=== PATIENT | male | born 1955 | race Caucasian/White ===

== ENCOUNTER 2017-05-09 08:25 | Inpatient (IN) | payer OTHER ==
[2017-05-09] VITALS (19 sets, daily range): BP systolic 81–138; BP diastolic 53–97; PULSE 90–122; RESP 12–26; O2SAT 96–100
[~2017-05-09] VITALS: Ht 175.3 cm; Wt 78.8 kg
[2017-05-09 09:11] LABS: BASOPHILS % (AUTO) 0.2 % (0-3); EOSINOPHILS % (AUTO) 0.2 % (0-5); MONOCYTES % (AUTO) 3.8 % (4-12); Mean Corpuscular Hemoglobin 31.4 pg (27.0-35.0); Mean Corpuscular Volume 90.7 fL (81-100); NEUTROPHILS % (AUTO) 83.8 % (40-74); Platelet Count 297 bil/L (150-400)
--- NOTE | 2017-05-09 09:11 | ED.REPORT ---
HPI-General Illness Date of Service May 09, 2017 ED Provider: Andreas Ferrari MD The pt is a 62 y/o male presenting to the ED via EMS due to multiple syncopal episodes. He reports losing consciousness twice last night after standing up and becoming lightheaded, diaphoretic, and began hyperventilating. He also reports losing consciousness while sitting on the toilet. The pt also reports bloody diarrhea beginning two days ago. He says he has had two colonoscopies that were normal but found bleeding from internal hemorrhoids. Other symptoms include nausea and abdominal pain right below the nasal, and a fever.Denies vomiting, CP, weakness, numbness, blurry vision, slurred speech, dysphagia. The pts reports having a cold currently. Nursing Notes Stated Complaint: SYNCOPAL Chief Complaint: Syncopal episodes Nursing Notes Reviewed: Yes Allergies: Coded Allergies: No Known Allergies (Unverified , 05/09/17) Scheduled Lisinopril (Lisinopril) 10 Mg Tablet 10 MG PO DAILY Scheduled PRN Aspirin (Aspirin) 325 Mg Tablet 325 MG PO PRN For Pain oxyCODONE-Acetaminophen 10-325 mg (oxyCODONE-Acetaminophen 10-325 mg) 1 Each Tablet 1 TABLET PO Q6H PRN PRN For Pain Miscellaneous Medications ([Testosterone]) ([Cholesterol Med]) General Time Seen by MD: 08:51 Chief Complaint Other (Syncopal episodes) Hx Obtained From: Patient, Spouse Arrived By: Ambulance Sudden in Onset?: Yes Onset Occurred: Yesterday Symptom Duration: Intermittent Recent Healthcare: No recent doctor visit, No recent hospitalization Similar Sx Previous: No Past Medical History Past Medical History "Bad back" Past Surgical History None reported Smoking History Unknown if Ever Smoker Social History Other Social History: Good social support, Ambulatory Status Independent Review of Systems Pt reports feeling lightheaded, diaphoretic, and hyperventilating when he stands up; Denies dysphagia; Full Review of Systems Constitutional: Reports: Fever Eyes: Denies: Blurred bilateral Cardiovascular: Denies: Chest pain GI: Reports: Abdominal pain, Bloody/tarry stool, Diarrhea, Nausea, Denies: Vomiting Neurologic: Denies: Numbness, Slurred speech, Weakness Complete sys rev & neg: except as marked. Physical Exam Vital Signs Vital Signs Date Time Temp Pulse Resp B/P Pulse Ox O2 Delivery O2 Flow Rate FiO2 8/22/17 09:07 100 22 114/54 99 Room Air 05/09/17 08:41 37 122 15 81/67 100 Room Air Initial VS: Reviewed General/Constitutional: Well-developed, Well-nourished Head / Eyes: Atraumatic, Normocephalic, PERRL ENT: Mucous membranes moist, Conjunctiva normal, No scleral icterus Neck: Supple, Non-tender, Full range of motion Respiratory: Breath sounds normal, Clear to auscultation, No respiratory distress Extremities: Vascular intact, Neuro intact, No swelling, No tenderness Skin: Warm, Dry, No cyanosis Neurologic: Alert, Oriented, Nonfocal Psychiatric: Mood/affect normal, Behavior normal, Normal thought content Cardiovascular: Regular rhythm, Heart sounds NL Heart Rate / Rhythm: Positive: Tachycardia Abdomen: Soft Tenderness/Guarding/Rebound: Positive: Tender diffuse (mild ) Rectum / Perineum: No fecal impaction Guaiac positive Interpretation & Diagnostics Lab Results Interpretation Result Diagram: 05/09/17 0855 05/09/17 0855 Test 05/09/17 08:55 White Blood Count 13.0th/mm3 (3.8-10.1) Red Blood Count 2.26mil/mm3 (4.40-5.80) Hemoglobin 7.1g/dL (13.8-17.2) Hematocrit 20.5% (41.0-50.0) Mean Corpuscular Volume 90.7fL (81-100) Mean Corpuscular Hemoglobin 31.4pg (27.0-35.0) Mean Corpuscular Hemoglobin Concent 34.6% (32.0-37.0) Red Cell Distribution Width 12.2% (12.3-15.4) Platelet Count 297bil/L (150-400) Neutrophils (%) (Auto) 83.8% (40-74) Lymphocytes (%) (Auto) 11.5% (14-46) Monocytes (%) (Auto) 3.8% (4-12) Eosinophils (%) (Auto) 0.2% (0-5) Basophils (%) (Auto) 0.2% (0-3) Sodium Level 136mEq/L (134-144) Potassium Level 4.9mEq/L (3.5-5.2) Chloride Level 104mEq/L (97-108) Carbon Dioxide Level 20mmol/L (18-29) Blood Urea Nitrogen 49mg/dL (8-27) Creatinine 1.15mg/dL (0.76-1.27) Estimat Glomerular Filtration Rate 68mL/min (>59) Glucose Level 131mg/dL (60-99) Lactic Acid Level 1.2mmol/L (0.4-2.0) Calcium Level 7.4mg/dL (8.5-10.1) Magnesium Level 1.7mg/dL (1.6-2.6) Total Bilirubin 0.2mg/dL (0.0-1.2) Aspartate Amino Transf (AST/SGOT) 10U/L (0-50) Alanine Aminotransferase (ALT/SGPT) 14U/L (0-44) Alkaline Phosphatase 50U/L (25-160) Total Protein 5.0g/dL (6.4-8.4) Albumin 3.4g/dL (3.4-5.0) Lipase 12U/L (13-60) ECG Interpretation ECG Interpretation: NSR No ST changes rate 97 Time: 08:56 Interpreted by: ED physician X-Ray Chest Interpretation Chest Xray Interpretation: IMPRESSION: Negative chest. No acute cardiopulmonary process is evident. Dictated by: Peyman Baltazar M.D. on 05/09/2017 at 9:27 Approved by: Peyman Baltazar M.D. on 05/09/2017 at 9:28 View: Portable, 1 view Interpretation / Wet Read by: Interpret - Radiologist CT Abd / Pelvis Interpretation IMPRESSION: 1. No definite acute abnormality is appreciated within the abdomen or pelvis. 2. Nonspecific prominence of the wall of the proximal duodenum may be related to incomplete distention. However, clinical correlation to exclude duodenitis is recommended. 3. Large amount of residual stool within the rectal vault may be related to early fecal impaction or constipation. No bowel obstruction. 4. Possible small hiatal hernia. 5. Small fat containing left in the hernia. 6. Moderate degenerative changes of the spine. Dictated by: Peyman Baltazar M.D. on 05/09/2017 at 10:14 Approved by: Peyman Baltazar M.D. on 05/09/2017 at 10:19 Study type: Abdom CT oral contrast Interpretation / Wet Read by: Interpret - Radiologist Re-Eval/Medical Decision Med Decision/Clinical Course 62-year-old male history of internal hemorrhoids and GI bleed from internal hemorrhoids acting years ago presenting with bloody diarrhea for the past 3 days. He has gross blood in his stools on exam today. His hemoglobin is 7. We have no baseline. He was hypotensive with maps in the 50s. He was given IV fluids and 2 units PRBCs. Stool cultures were ordered. CT abdomen and pelvis no acute pathology. Discussed with GI who will see the patient. Protonix started. Admitted to hospital. Source of Hx: Old records Time of Eval: 11:33 Re-Evaluation/Progress Note: Pt rechecked. Informed pt of need for admission. Pt understands and agrees with plan for admission. All questions addressed. Consultation #1: Referral / Consult Name: Emma Ayon MD Consulted With: Cardiology Call Returned at: 09:51 Consultation #2: Referral / Consult Name: Ramsey Oscar MD Consulted With: Hospitalist Call Returned at: 11:33 Broacher: Will see patient, Agrees with eval, Agrees with plan, Accepts admit Counseled Regarding: Diagnosis, Lab results, Need for admission Discharge & Departure Primary Impression: GI bleed GI bleed type/associated pathology: unspecified gastrointestinal hemorrhage type Qualified Code: K92.2 - Gastrointestinal hemorrhage, unspecified Additional Impression: Syncope Syncope type: unspecified Qualified Code: R55 - Syncope and collapse Disposition: ADMITTED TO HOSPITAL Discharge Condition All VS Reviewed: Yes Condition: Stable Referrals: Anuj Keating PA-C (PCP) Crit Care Except Billable Proc Time Spent: 30-74 minutes Services Performed: Patient management by me, Time spent at bedside, Reviewing test results, Reviewing imaging, Discussing patient care, Documentation in record, Time with fam/surrogate (35) Scribe Attestation Portions of this note were transcribed by Abram Bell. I, Dr. Ferrari personally performed the history, physical exam and medical decision-making; I reviewed and confirmed the accuracy of the information in the transcribed note. copies to: Anuj Keating PA-C, Ben M MD May 09, 2017 09:11 Abram Bell May 09, 2017 09:52
[2017-05-09] MEDS ORDERED: LISI10TA PO (09:15)
[2017-05-09] MEDS ORDERED: TESTOSTERONE (09:15)
[2017-05-09] MEDS ORDERED: CHOLESTEROL MED (09:15)
[2017-05-09] MEDS ORDERED: ASPI325T32 PO (09:15)
[2017-05-09] MEDS ORDERED: OXYC-466 PO (09:15)
[2017-05-09] MEDS ORDERED: 0.9% Sodium Chloride 1,000 ML IV ONE (09:30)
[2017-05-09 09:32] LABS: Magnesium 1.7 mg/dL (1.6-2.6)
[2017-05-09] MEDS ORDERED: Pantoprazole Inj 80 MG, Pharmacy To Mix 1 EA in 0.9% Sodium Chloride 80 ML IV ONE ×2 (10:25)
[2017-05-09] MEDS ORDERED: Pantoprazole 4 mg/mL 10 mL Inj IVPUSH ONE (10:25)
--- NOTE | 2017-05-09 10:30 | DRSVH ---
PROCEDURE: X-RAY CHEST ONE VIEW, PORTABLE ([id number]) INDICATIONS: COUGH TECHNIQUE: One view of the chest was acquired. COMPARISON: [facility], CR, XR CHEST 2VW, 06/03/2016, 9:58. FINDINGS: Surgical changes and devices: None. Lungs and pleura: No pleural effusions or pneumothorax. Lungs are clear. Mediastinum: Mediastinal contours appear normal. Heart size is normal. Bones and chest wall: No suspicious bony lesions. Overlying soft tissues appear unremarkable. A ca lcification within the left neck may represent a carotid atherosclerotic calcification. IMPRESSION: Negative chest. No acute cardiopulmonary process is evident. Dictated by: Peyman Baltazar M.D. on 05/09/2017 at 9:27 Approved by: Peyman Baltazar M.D. on 05/09/2017 at 9:28
[2017-05-09] MEDS: Ondansetron 2 mg/mL 2 mL Inj IVPUSH PRN ×2 (10:58→11:39)
--- NOTE | 2017-05-09 11:21 | DRSVH ---
PROCEDURE: CT ABDOMEN AND PELVIS WITH CONTRAST ([id number]) INDICATIONS: abd pain gi bleed TECHNIQUE: After the administration of oral and intravenous contrast, 5 mm thick sections acquired from the diap hragms to the symphysis. 5 mm thick coronal and sagittal reformats were performed. For radiation do se reduction, the following was used: automated exposure control, adjustment of mA and/or kV accordi ng to patient size. COMPARISON: None. FINDINGS: Image quality: Diagnostic. ABDOMEN: Lung bases: Lung bases are clear. Heart size is normal. Solid organs: Liver and spleen are normal in size and enhancement. Gallbladder is not enlarged or o bviously inflamed. Biliary system is non-dilated. Pancreas enhances normally. No adrenal nodules. Kidneys are normal in size and enhancement, without hydronephrosis. Peritoneum and bowel: There may be a small hiatal hernia. Otherwise, the stomach, duodenum, and edi natanael of the small bowel loops are nondilated. There is borderline prominence of the wall of the duo denum within the 1st to 2nd portion of the duodenum. No surrounding inflammation is evident. The ap pendix is well-visualized and normal in size without surrounding inflammation. There is a large amou nt of residual stool seen within the rectum. There may be areas of colonic diverticulosis. No mesen teric inflammation is present. No free fluid, loculated fluid collection or free air is evident. Nodes and vessels: No retroperitoneal or mesenteric adenopathy. Aorta and inferior vena cava are no rmal in caliber. There is aortic atherosclerosis. Bones: Moderate multilevel degenerative changes of the spine are present. No suspicious osseous lesi ons are evident. Bilateral L5 pars defects are present without significant lumbosacral spondylolisth esis. There is grade 1 anterolisthesis of L4 and L5. However, no definite pars defects at this leve l are present. PELVIS: Genitourinary: Bladder wall thickness is normal. The prostate is significantly enlarged. Miscellaneous: There is a small fat containing left inguinal hernia. No free fluid or loculated flui d collection is seen within the pelvis. Bones: No suspicious bony lesions. No acute pelvic fractures are identified. IMPRESSION: 1. No definite acute abnormality is appreciated within the abdomen or pelvis. 2. Nonspecific prominence of the wall of the proximal duodenum may be related to incomplete distenti on. However, clinical correlation to exclude duodenitis is recommended. 3. Large amount of residual stool within the rectal vault may be related to early fecal impaction or constipation. No bowel obstruction. 4. Possible small hiatal hernia. 5. Small fat containing left in the hernia. 6. Moderate degenerative changes of the spine. Dictated by: Peyman Baltazar M.D. on 05/09/2017 at 10:14 Approved by: Peyman Baltazar M.D. on 05/09/2017 at 10:19
[2017-05-09] MEDS ORDERED: Pantoprazole Inj 80 MG in 0.9% Sodium Chloride 80 ML IV SCH (11:50)
[2017-05-09] MEDS ORDERED: Alum-Mag Hydrox-Simeth 30 mL Suspension PO PRN (12:35)
[2017-05-09] MEDS ORDERED: Ondansetron 2 mg/mL 2 mL Inj IVPUSH PRN ×2 (12:35→19:20)
[2017-05-09 13:29] LABS: APPEARANCE,URINE HAZY (CLEAR,HAZY); COLOR,URINE STRAW (YELLOW)
[2017-05-09 13:30] LABS: OCCULT BLOOD,URINE NEGATIVE (NEGATIVE); UROBILINOGEN,URINE NORMAL (NORMAL)
[2017-05-09] MEDS ORDERED: Propofol 10,000 mCg/mL 20 mL Inj ONE (13:38)
[2017-05-09] MEDS: HYDROmorphone 1 mg/mL Inj IVPUSH PRN ×2 (15:31→21:13)
--- NOTE | 2017-05-09 15:37 | PCM.HPMED ---
Subjective Date of Service May 09, 2017 Primary Provider: Admitting Physician: Ramsey Oscar MD Primary Care Physician: Anuj Keating PA-C Attending Physician: Ramsey Oscar MD Admit Status: From the Emergency Department, Admit to [facility] Team Chief Complaint: GI Bleed History of Present Illness: Mr. Chavez is a 62-year-old male with past medical history of hypertension, hyperlipidemia, low testosterone chronic lower back pain secondary to ruptured disc secondary to fall from roof who presents to ED secondary to bloody diarrhea 2 days. Patient states that he developed a cold 4 days ago with associated symptoms of productive cough of yellow sputum, stomach ache bloody diarrhea lightheadedness which persisted over the weekend into Monday. On Monday night he was using the toilet when he got up he became lightheaded and "passed out" following on the bathroom floor. When he woke up he was able to crawl to his bed though he that time he needed to be evaluated. He states that he has been having approximately 8-10 bloody diarrheal bowel movements per day, this is been accompanied with some nausea night sweats and chills, suprapubic pain and shortness of breath which he attributes to anxiety. He has felt lightheaded especially when going from sitting to standing. He denies chest pain, headache, visual disturbances or fevers. He currently lives at home with his and daughter, reports his daughter age 25 to have similar symptoms of nausea and diarrhea though nonbloody. He does not drink alcohol regularly, nonsmoker and has never had similar symptoms. Denies any recent travel or family history of gastrointestinal diagnoses. He states he has had a GI bleed in the past though was told this was due to internal hemorrhoids and presented with bright red blood. He does state that he takes a daily aspirin, sometimes more to help supplement his pain medication Percocet for his chronic back pain. In the emergency department EKG showed normal sinus rhythm with no ST changes though tachycardic. Chest x-ray was negative. CT of the abdomen and pelvis showed no acute abnormality possible duodenitis large amount of residual stool within the rectal vault though no bowel obstruction. GI consult from the ED to see patient, currently scheduled for upper endoscopy today. Hemoglobin and hematocrit 7.1/20.5, given 1 unit of PRBCs. Started on PPI, given normal saline and pain medicine. Review of Systems: A comprehensive review of systems was conducted with the patient and found to be negative except as above in the history of present illness. Allergies Coded Allergies: No Known Allergies (Unverified , 05/09/17) Home Medications Aspirin (Aspirin) 325 Mg Tablet 325 MG PO PRN For Pain oxyCODONE-Acetaminophen 10-325 mg (oxyCODONE-Acetaminophen 10-325 mg) 1 Each Tablet 1 TABLET PO Q6H PRN PRN For Pain Patient reports: Lisinopril, cholesterol medication and testosterone [facility] Patient reports hypertension, hyperlipidemia, low testosterone, chronic back pain secondary to ruptured disc secondary to fall from roof Surgical History Patient reports: bilateral inguinal hernia repair 30 years prior. 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 Never served in the . Currently lives with daughter and has 4 full grown children age range 37-25 2 boys 2 girls Exam Vital Signs Vital Sign - Last Date Time Temp Pulse Resp B/P Pulse Ox O2 Delivery O2 Flow Rate FiO2 05/09/17 15:25 37.2 99 14 116/72 05/09/17 14:38 100 Room Air Exam General: Awake alert laying in hospital bed in mild discomfort, well-developed, well-nourished, appropriately interactive HEENT: Normocephalic, atraumatic. External ears without defect. Pupils equal, round, and reactive to light and accommodation. Anicteric sclerae, no conjunctival. Oropharynx free of erythema and cobble stoning with moist mucosa, upper bridge in place. Neck: Supple with full range of motion. No jugular venous distension. No bruits. Cardiovascular: Regular rate and rhythm with no murmurs, rubs, or gallops appreciated Pulmonary: Clear to auscultation bilaterally with no crackles, wheezes, or rhonchi. Normal respiratory effort with no use of accessory muscles. Abdomen: Bowel tones present. Soft, palpation 4 quadrants. Suprapubic tenderness on palpation. Extremities: No clubbing, cyanosis, edema Skin: Normal temperature, turgor, and texture Neurological: Cranial nerves grossly intact. Psychiatric: Normal mood and affect. Alert and oriented to person, place, and time. Lab and Diagnostics Result Diagram: 05/09/1755 05/09/17 0855 X-Rays, CTs and MRIs . X-RAY CHEST ONE VIEW, PORTABLE IMPRESSION: Negative chest. No acute cardiopulmonary process is evident. Dictated by: Peyman Baltazar M.D. on 05/09/2017 CT ABDOMEN AND PELVIS WITH CONTRAST IMPRESSION: 1. No definite acute abnormality is appreciated within the abdomen or pelvis. 2. Nonspecific prominence of the wall of the proximal duodenum may be related to incomplete distention. However, clinical correlation to exclude duodenitis is recommended. 3. Large amount of residual stool within the rectal vault may be related to early fecal impaction or constipation. No bowel obstruction. 4. Possible small hiatal hernia. 5. Small fat containing left in the hernia. 6. Moderate degenerative changes of the spine. Dictated by: Peyman Baltazar M.D. on 05/09/2017 Assessment & Plan Mr. Chavez is a 62-year-old male with past medical history of hypertension, hyperlipidemia and chronic back pain who was admitted secondary to GI bleed. Hospital day 1 GI bleed, present on admission. Ongoing Differential includes duodenitis/gastritis, erosive ulcer secondary to ASA use, H. pylori infection -GI consult by ED doctor plan for upper endoscopy today -H&H 7.120.5 -Received 1 unit PRBCs and EGD currently infusing second unit -Continue to monitor with serial H&H -PPI drip -Nothing by mouth -Dilaudid IV every 4 when necessary -Appropriate cultures and serologies pending Opioid dependence, present on admission. Ongoing Secondary to chronic back pain and long-standing use of Percocet -IV pain meds as above Chronic back pain, present on admission. Ongoing -IV pain meds as above Leukocytosis, present on admission. Ongoing -Most likely stress reaction -Continue to monitor for signs of infection Hypertension, present on admission. Stable -Hold home lisinopril and her determine hemodynamic state Patient Status: Patient was admitted under inpatient status with expected length of stay greater than two midnights due to severity of presenting symptoms , risk of adverse event, and complexity of treatment plan. Pain Evaluation: Adequate Pain Control GI Prophylaxis: Proton Pump Inhibitor VTE Prophylaxis Indicated: Contraindicated Resuscitation Status: CPR: Attempt Resuscitation JAY GUERRERO DO May 09, 2017 15:37
[2017-05-09] MEDS ORDERED: HYDROmorphone 1 mg/mL Inj IVPUSH ONE (17:25)
[2017-05-09] MEDS ORDERED: TEST200V20 IM (18:11)
[2017-05-09] MEDS ORDERED: ATOR20TA PO (18:11)
--- NOTE | 2017-05-09 18:32 | NUR ---
Admission Pt arrived from ED on stretcher. transferred himself over to bed. Family present at bedside. PRBC infusing on arrival, completed unit and 2nd unit hung and infused without issue. Denies CP, no SOB. Has back pain chronically, medicated with 1mg IV dilaudid x2 for mild decrease in pain. Pt also has PIV with protonix infusing on arrival. BP decreased over shift, started in 100's, down to 90's at end of shift. Pt down to endo, NPo maintained.
--- NOTE | 2017-05-09 18:55 | PCM.CHPMED ---
Subjective Date of Service: May 09, 2017 Provider requesting consult: Andreas Ferrari MD Primary Physician: Admitting Physician: Primary Care Physician: Anuj Keating PA-C Attending Physician: Admit Status: From the Emergency Department Chief Complaint: Chief Complaint: Syncope History of Present Illness: Nathan Chavez is a 62-year-old gentleman with a history of hypertension, hyperlipidemia, and chronic back pain with chronic NSAID use who presented to the ED following a syncopal episode at home with the complaint of bloody and dark colored stool for the past 2 days. He states that he had been fighting off a cold and because of that had not been eating or drinking very much. But he otherwise was feeling okay until around 4am yesterday when he passed out after a bowel movement. He states that upon standing he became very lightheaded, diaphoretic, and began hyperventilating. He states that this was the only episode where he lost consciousness but he reports similar symptoms without syncope. Associated symptoms include rapid heart beat, diffuse abdominal pain, nausea with dry heaves, and diarrhea. He reports a history of internal hemorrhoids about 15 years ago that resolved without treatment and have not reoccurred. He states that he has had two colonoscopies in the past which revealed diverticulosis and polyps but were otherwise unremarkable. He denies chest pain, fever, chills, weakness, changes in vision, difficulty swallowing, or changes in speech. He does not an increase in his chronic back pain for which he was recently started on oxycodone-acetaminophen in addition to his daily NSAID use. He states that he drinks diet soda but very little coffee. He denies tobacco or alcohol use. At presentation he was afebrile, tachycardic and hypotensive with a BP of 81/67 and a hemoglobin of 7.1 His blood pressure improved with IV fluids and he was started on a protonix drip. Labs were otherwise notable for a mild leukocytosis with a left shift and an elevated glucose. Review of Systems: A comprehensive review of systems was conducted with the patient and found to be negative except as above in the History of Present Illness. PMH Past Medical History Hypertension Hyperlipidemia Degenerative disc disease Chronic back pain Internal hemorrhoids Diverticulosis Colonic polyps Surgical History Inguinal hernia repair Colonoscopy Home Medications Lisinopril 10 MG PO DAILY Aspirin 325 MG PO PRN oxyCODONE-Acetaminophen 10-325 mg PO Q6H PRN Allergies: Coded Allergies: No Known Allergies (Unverified , 05/09/17) Family History Family History Mother- CVA. Father- patient states that he does not know much about his father' s history. 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 Appropriately interactive. HEENT: Normocephalic, atraumatic. PERRLA, EOMI. Anicteric sclerae. Mucous membranes moist/pink Lungs: Clear to auscultation bilaterally with no crackles, wheezes, or rhonchi. Cardiovascular: Regular rate/rhythm. No murmurs/rubs/gallops Abdomen: Soft, nondistended, diffusely tender to palpation more son in LLQ. No rebound or guarding. Hypoactive bowel tones. Extremities: No cyanosis/clubbing/edema bilaterally Neurological: Grossly neurologically intact. Normal speech Lab and Diagnostics Labs Laboratory Tests Test 05/09/17 08:55 White Blood Count 13.0th/mm3 (3.8-10.1) Red Blood Count 2.26mil/mm3 (4.40-5.80) Hemoglobin 7.1g/dL (13.8-17.2) Hematocrit 20.5% (41.0-50.0) Mean Corpuscular Volume 90.7fL (81-100) Mean Corpuscular Hemoglobin 31.4pg (27.0-35.0) Mean Corpuscular Hemoglobin Concent 34.6% (32.0-37.0) Red Cell Distribution Width 12.2% (12.3-15.4) Platelet Count 297bil/L (150-400) Neutrophils (%) (Auto) 83.8% (40-74) Lymphocytes (%) (Auto) 11.5% (14-46) Monocytes (%) (Auto) 3.8% (4-12) Eosinophils (%) (Auto) 0.2% (0-5) Basophils (%) (Auto) 0.2% (0-3) Sodium Level 136mEq/L (134-144) Potassium Level 4.9mEq/L (3.5-5.2) Chloride Level 104mEq/L (97-108) Carbon Dioxide Level 20mmol/L (18-29) Blood Urea Nitrogen 49mg/dL (8-27) Creatinine 1.15mg/dL (0.76-1.27) Estimat Glomerular Filtration Rate 68mL/min (>59) Glucose Level 131mg/dL (60-99) Lactic Acid Level 1.2mmol/L (0.4-2.0) Calcium Level 7.4mg/dL (8.5-10.1) Magnesium Level 1.7mg/dL (1.6-2.6) Total Bilirubin 0.2mg/dL (0.0-1.2) Aspartate Amino Transf (AST/SGOT) 10U/L (0-50) Alanine Aminotransferase (ALT/SGPT) 14U/L (0-44) Alkaline Phosphatase 50U/L (25-160) Total Protein 5.0g/dL (6.4-8.4) Albumin 3.4g/dL (3.4-5.0) Lipase 12U/L (13-60) Result Diagram: 05/09/17 0855 05/09/17 0855 12-lead ECG ECG showed normal sinus rhythm with a rate of 97 and no acute ischemic changes. Assessment & Plan Assessment 62-year-old gentleman with a history of chronic back pain treated with percocet and daily NSAIDs who presented to the ED following a syncopal episode at home with a complaint of bloody diarrhea for the past two days. GI consulted for further evaluation and management of acute GI bleed. Acute GI bleed. -Likely upper source for bleeding due to patient's two day history of melena. However, he also reported some bright red blood per rectum as well as diffuse abdominal pain, which is worse in the LLQ. He presented with two day history of melena but also reported bright red blood per rectum. It is possible he may both upper and lower bleeding. -Differential includes gastric and/or duodenal ulcers, erosive gastritis/ duodenitis, internal hemorrhoids, and mass lesions (polyps or neoplasms). -Based on the patient's history symptoms most likely due to bleeding from a peptic ulcer secondary to daily NSAID use. -Patient's last colonoscopy within our EMR is from 2008 which showed chronic polyps and rare diverticulosis. RECOMMENDATIONS: -EGD today -Start Protonix drip -IV fluids as needed -Monitor Hb/Hct -NPO -Consider colonoscopy as an inpatient pending EGD results. Otherwise recommend outpatient followup for colonoscopy. Anemia secondary to acute GI bleed. -Patient presented with hypotensive and tachycardic with a hemoglobin of 7.1. -Received 2 unit pRBCs -Monitor Hb/Hct -Management for GI bleeding as above. Additional problems managed per primary hospitalist. -Opioid dependence -Chronic back pain -Hypertension Problems: Attending Statement Patient seen and examined with resident physician agree with her note above and plan as outlined above. Deneen Griffin DO May 09, 2017 10:02 Alaina Hines MD May 11, 2017 18:19
[2017-05-09] MEDS ORDERED: Lactated Ringer's 1,000 ML IV ONE (19:07)
[2017-05-09] MEDS ORDERED: Lactated Ringer's 1,000 ML IV SCH (19:19)
[2017-05-09] MEDS ORDERED: MetoCLOpramide 5 mg/mL 2 mL Inj IVPUSH PRN (19:20)
--- NOTE | 2017-05-09 19:48 | ENDO ---
[address] [address] ENDOSCOPY PROCEDURE PATIENT: JOSE ELIAS GACRIA : 1955 MR#: [id number] ADMIT: 05/09/2017 JOB ID: [id number] DATE: 05/09/2017 PROCEDURE: Esophagogastroduodenoscopy. INDICATION: Anemia and rectal bleeding. The patient's ASA classification, Mallampati score and medications are per Dr. Joo Gabriel's anesthesia report. INSTRUMENT USED: [id number]. PROCEDURE DETAILS: After informed consent was obtained, the patient was brought into the GI suite, where he was placed on oxygen via nasal cannula and monitored with continuous pulse oximeter, telemetry, and blood pressure monitoring. A time-out was performed. Then, he was placed in a left lateral decubitus position and medications were administered for sedation. A bite block was placed. The standard EGD scope was inserted through the bite block and advanced under direct visualization to the second portion of the duodenum without difficulty. FINDINGS: 1. At the junction of the first and second portion of the duodenum at the 8 o'clock position, there was an approximately 8 mm clean-based ulcer. The margins were erythematous and edematous. I was unable to achieve good scope position to biopsy the ulcer. However, was able to visualize the ulcer in its entirety. 2. The remainder of the duodenal exam revealed multiple erosions in the duodenal bulb. 3. Normal-appearing pylorus. In the antrum and body of the stomach, there were multiple clean- based ulcers, as well as scarring from what appeared to be prior ulcers. These ulcers ranged in size from 2-3 mm to approximately 4-5 mm. 4. Retroflexed views in the gastric body revealed a normal-appearing cardia and fundus. 5. The GE junction was regular at 39 cm. 6. No old or fresh blood was seen on the EGD exam. 7. Biopsies were obtained for H. pylori evaluation. IMPRESSION: 1. Multiple gastric ulcers. 2. Duodenal ulcer. RECOMMENDATIONS: 1. Avoid NSAIDs, if able. 2. PPI b.i.d. for 8-12 weeks. 3. Repeat EGD in eight weeks. COMPLICATIONS: None. ESTIMATED BLOOD LOSS: Less than 5 mL. CC: Patient's primary care provider.
--- NOTE | 2017-05-09 20:08 | PCM.HPANE ---
Patient Data Surgeon Admitting Provider:Ramsey Oscar MD Attending Provider:Ramsey Oscar MD Primary Care Physician:Anuj Keating PA-C Other Provider: Reason for Visit Gi Bleed Ht/WT & BMI Height (Feet): 5 Height (Inches): 9.00 Weight (Kilograms): 81.300 Body Mass Index 26.55 Allergies Coded Allergies: No Known Allergies (Unverified , 05/09/17) Past Anesthesia History Anesthesia History: Denies:: Abnormal Airway, Anesthesia Reactions, Difficult Intubation, Fam Anesthesia Reaction, Fam Malignant Hypertherm, Malignant Hyperthermia Diabetes History Hx Diabetes?: No MRSA MRSA: No Medications Reported Medications Atorvastatin (Lipitor)20 Mg [id number] Mg PO HS 05/09/17 Testosterone Cypionate 200 Mg/1 Ml [id number] Mg IM Every other Monday05/09/17 oxyCODONE-Acetaminophen 10-325 mg 1 Each Tablet1 Tablet PO Q6H PRN For Pain 05/09/17 Lisinopril 10 Mg [id number] Mg PO DAILY 05/09/17 Discontinued Reported Medications [Cholesterol Med] No Conflict Check 05/09/17 [Testosterone] No Conflict Check 05/09/17 Aspirin 325 Mg [id number] Mg PO PRN For Pain #1 BOTTLE 05/09/17 History History of ENT Problems?: No HEENT History: Denies:: Abnormal Airway Cataracts Difficult Intubation Dysphagia Glaucoma Hearing Problem Sinus Problem TMJ Denture Type: Full- Upper Teeth Condition: Missing Teeth Hx of Heart Problems?: Yes Cardiovascular History: Positive for:: Hypertension (lisinopril) Denies:: AICD Abdominal Aortic Aneurism Atrial Fibrillation Cardiac Surgery Chest Pain Congestive Heart Failure Coronary Artery Disease Edema Heart Murmur Irregular Heartbeat Pacemaker Peripheral Vascular Rheumatic Fever Thrombophlebitis Valvular Heart Disease Hx of Respiratory Problem?: Yes Respiratory History: Positive for:: Dyspnea (just with current GIB issue) Pneumonia (last year) Denies:: Asthma COPD Chest Surgery Cough Emphysema Hemoptysis Oxygen Administration Pulmonary Embolism Tuberculosis Use of C-PAP Machine Use of Inhalers / NEBS Hx Neurologic Problems?: Yes Neurological History: Positive for:: Dizziness Headaches Denies:: Alzheimer's Disease CVA Dementia Multiple Sclerosis Parkinson's Disease Peripheral Neuropathy Seizures TIA Hx of GI Problems?: Yes Gastrointestinal History: Denies:: Cirrhosis Diverticulitis Gall Bladder Disease Gastroesphageal Reflux Gastrointestinal Bleeding Heartburn Hepatitis Hiatal Hernia Liver Disease Rectal Bleeding Other GI Pertinent History: bilat inguinal hernia repair surgically 30 yrs ago Hx of Problems?: No Genitourinary History: Denies:: HX of Hemodialysis Kidney Stones Urinary Tract Infection HX of Peritoneal Dialysis: No Male Hx: Denies:: Prostate Problems Scrotal Mass Testicular Surgery Skin History: Denies:: History Skin Disorders? Pressure Ulcers Hx Musculoskeletal Problems?: Yes Musculoskeletal History: Positive for:: Back Injury (25 yrs ago- fell off roof , ruptured discs ) Denies:: Degenerative Joint Fibromyalgia Joint Replacement Musculoskeletal Trauma Myasthenia Gravis Osteoarthritis Rheumatoid Arthritis Systemic Lupus Hx of Psycho/Social Problems?: No Psycho Social History: Denies:: Anxiety Bipolar Disorder Hx Depression Suicide Attempt Hx Surgeries?: Yes (bilat inguinal hernia repair) Other History: Positive for:: Hospitalization (hernia repair) Denies:: Cancer Endocrine Disease Thyroid Disease History Blood Transfusions: Positive for:: Accept Blood Products? Denies:: Blood Transfuse Reaction Blood Transfusions Hx Diabetes: No Hx Alcohol Use: NoHx Substance Use: No Smoking Status: Unknown if Ever Smoker Have You Smoked inLast 12 mo: No Stop/Bang Treated for Sleep Apnea?: No Do You Have a CPAP Machine?: No S-Snoring: Do You Snore Loudly: No T-Tired: feel tired, fatigued: Yes O-Obsered: Observed not breath: No P-Blood Pressure: treated: Yes B- Body Mass Index > 35 kg/m2: No A- Age over 50: Yes N- Neck Large Circumference: No G- Gender Male: Yes DERREK Total Score: 3 Risk Assessment Category Category 1A: Patient has history of documented sleep apnea, and HAS NOT received any narcotic, sedative or anesthesia administration during this stay. Category 1B: Patient has history of documented sleep apnea, and HAS received any narcotic , sedative or anesthesia administration during this stay Category 2: Patient has SUSPECTED Obstructive Sleep Apnea, and HAS received any narcotic , sedative or anesthesia administration during this stay. Category 3: Patient has SUSPECTED Obstructive Sleep Apnea and HAS NOT received narcotic, sedative or anesthesia administration during this stay. Category 4: Outpatient in Procedural Areas with known sleep apnea or who screen positive for High Risk via the STOP/BANG questionnaire. Exam Exam Vital Signs Vital Signs Date Time Temp Pulse Resp B/P Pulse Ox O2 Delivery O2 Flow Rate FiO2 05/09/17 17:19 37.6 92 14 117/63 05/09/17 15:49 37.6 96 14 111/64 05/09/17 15:25 37.2 99 14 116/72 05/09/17 15:00 37.2 102 14 123/67 05/09/17 14:38 37.0 113 14 102/65 100 Room Air 05/09/17 13:53 99 05/09/17 13:52 37.4 103 18 121/97 99 Room Air 05/09/17 13:35 36.4 104 12 112/67 97 Room Air 05/09/17 13:34 103 26 111/53 98 Room Air 05/09/17 12:27 36.4 104 12 112/67 97 General Appearance: Alert, Oriented X3, Cooperative, No Acute Distress HEENT/AIRWAY: MP 2, Neck Movement (FROM), Mouth Opening (3 FBMO) Lungs: Clear to Auscultation, Normal Air Movement Heart: Exam Unremarkable, Regular Rate/Rhythm, No Murmurs/Rubs/Gallops Meds/Labs/Diagnostics Admission Meds Current Medications Sodium Chloride (Normal Saline) 1,000 ml @ 0 mls/hr Q0M ONCE IV Last administered on 05/09/17 09:47; Start 05/09/17 at 09:30; Stop 05/09/17 at 09:33 ; Status DC Pantoprazole 80 mg 80 mg STAT ONCE IVPUSH Last administered on 05/09/17 10:52 ; Start 05/09/17 at 10:25; Stop 05/09/17 at 10:26; Status DC Pantoprazole/ Miscellaneous/ Sodium Chloride (Protonix Inj/ Pharmacy To Mix/ Normal Saline) 100 ml @ 10 mls/hr ONCE ONCE IV Last administered on 11:16; Start 05/09/17 at 10:25; Stop 05/09/17 at 20:24 Labs Test 05/09/17 08:55 05/09/17 12:44 White Blood Count 13.0th/mm3 (3.8-10.1) Red Blood Count 2.26mil/mm3 (4.40-5.80) Hemoglobin 7.1g/dL (13.8-17.2) Hematocrit 20.5% (41.0-50.0) Mean Corpuscular Volume 90.7fL (81-100) Mean Corpuscular Hemoglobin 31.4pg (27.0-35.0) Mean Corpuscular Hemoglobin Concent 34.6% (32.0-37.0) Red Cell Distribution Width 12.2% (12.3-15.4) Platelet Count 297bil/L (150-400) Neutrophils (%) (Auto) 83.8% (40-74) Lymphocytes (%) (Auto) 11.5% (14-46) Monocytes (%) (Auto) 3.8% (4-12) Eosinophils (%) (Auto) 0.2% (0-5) Basophils (%) (Auto) 0.2% (0-3) Sodium Level 136mEq/L (134-144) Potassium Level 4.9mEq/L (3.5-5.2) Chloride Level 104mEq/L (97-108) Carbon Dioxide Level 20mmol/L (18-29) Blood Urea Nitrogen 49mg/dL (8-27) Creatinine 1.15mg/dL (0.76-1.27) Estimat Glomerular Filtration Rate 68mL/min (>59) Glucose Level 131mg/dL (60-99) Lactic Acid Level 1.2mmol/L (0.4-2.0) Calcium Level 7.4mg/dL (8.5-10.1) Magnesium Level 1.7mg/dL (1.6-2.6) Total Bilirubin 0.2mg/dL (0.0-1.2) Aspartate Amino Transf (AST/SGOT) 10U/L (0-50) Alanine Aminotransferase (ALT/SGPT) 14U/L (0-44) Alkaline Phosphatase 50U/L (25-160) Total Protein 5.0g/dL (6.4-8.4) Albumin 3.4g/dL (3.4-5.0) Lipase 12U/L (13-60) Urine Color Straw (YELLOW) Urine Appearance Hazy (CLEAR,HAZY) Urine pH 6.0 (5.0-8.0) Urine Specific [place] 1.010 (1.003-1.035) Urine Protein Negativemg/dL (NEG,TRACE) Urine Glucose (UA) Negativemg/dL (NEGATIVE) Urine Ketones 40mg/dL (NEGATIVE) Urine Occult Blood Negative (NEGATIVE) Urine Nitrite Negative (NEGATIVE) Urine Bilirubin Negative (NEGATIVE) Urine Urobilinogen Normalmg/dL (NORMAL) Urine Leukocyte Esterase Negative (NEGATIVE) Urine RBC 0-2/hpf (0-2) Urine WBC 0-5/hpf (0-5) Urine Epithelial Cells Occasional/hpf (NONE-MOD) Urine Crystals None seen (NONE SEEN) Urine Bacteria None/hpf (NONE-FEW) Urine Hyaline Casts Occasional/lpf (NONE) Urine Granular Casts None seen (NONE SEEN) Urine Waxy Casts None seen (NONE SEEN) Urine Red Blood Cell Casts None seen (NONE SEEN) Urine White Blood Cell Casts None seen (NONE SEEN) Urine Mucus Present (None Seen) Urine Trichomonas None seen (NONE SEEN) Urine Yeast None (NONE SEEN) Urinalysis Comment None Urine Culture Reflexed Not indicated Plan Impression Patient chart reviewed, patient interviewed and anesthestic plan with risks, benefits, and alternatives discussed, and informed consent obtained. NPO per Anesth. Guidelines: Yes ASA Physical Status: ASA2 Mod Systemic Disease Anesthetic Plan: GA, MAC Bene/Risks/Altern/Consents: Yes HP Complete Prior to Induction: Yes Joo Gabriel MD May 09, 2017 17:54
--- NOTE | 2017-05-09 20:09 | PCM.ANEP1 ---
Post Anesthesia PACU Phase 1 Assessment Vital Signs Vital Signs Date Time Temp Pulse Resp B/P Pulse Ox O2 Delivery O2 Flow Rate FiO2 05/09/17 19:39 94 16 110/64 97 Room Air 05/09/17 19:35 93 16 112/57 97 Room Air 05/09/17 19:31 96 16 111/63 98 Room Air 05/09/17 19:22 95 16 109/54 96 Room Air 05/09/17 18:25 98 20 138/70 100 Room Air 05/09/17 17:19 37.6 92 14 117/63 05/09/17 15:49 37.6 96 14 111/64 05/09/17 15:25 37.2 99 14 116/72 05/09/17 15:00 37.2 102 14 123/67 05/09/17 14:38 37.0 113 14 102/65 100 Room Air 05/09/17 13:53 99 05/09/17 13:52 37.4 103 18 121/97 99 Room Air 05/09/17 13:35 36.4 104 12 112/67 97 Room Air 05/09/17 13:34 103 26 111/53 98 Room Air 05/09/17 12:27 36.4 104 12 112/67 97 Anesthetic Administered: GA, MAC Level of Alertness: Awake, talking NOWAK's with Equal Strength: Yes Pain: Yes Pain Scale Score: 2 Nausea or Vomiting: No CV Function & Hydration Stable: No Airway Device: n/a Oxygen Delivery: Room Air Lungs: Clear to Auscultation, Normal Air Movement Dermatome Level: Full Sensation PACU Phase 2 Assessment Complications: No Follow up Care: N/A Patient Instructions Provided: N/A Joo Gabriel MD May 09, 2017 20:08
--- NOTE | 2017-05-09 21:05 | NUR ---
EGD pt back from EGD tolerating procedure well according to nurse. pt did have large black stool in bed. IVs SL and protonix gtt changed to PO protonix
[2017-05-10] VITALS (9 sets, daily range): BP systolic 99–113; BP diastolic 5–67; PULSE 86–104; RESP 16–20; O2SAT 97–99
[2017-05-10] MEDS: HYDROmorphone 1 mg/mL Inj IVPUSH PRN ×4 (01:32→13:56)
[2017-05-10 03:04] LABS: BASOPHILS % (AUTO) 0.2 % (0-3); EOSINOPHILS % (AUTO) 0.8 % (0-5); MONOCYTES % (AUTO) 7.2 % (4-12); Mean Corpuscular Volume 89.8 fL (81-100); NEUTROPHILS % (AUTO) 73.1 % (40-74); Platelet Count 232 bil/L (150-400)
--- NOTE | 2017-05-10 06:13 | NUR ---
pain pt c/o pain mostly in his back which is chronic, pt receiving 1mg IV dilaudid [id number] with some relief, pt also c/o upset stomach unsure if its because he hasn't ate in a few days or because he was nausea, pt is tolerating clear liquids, gave IV zofran
[2017-05-10] MEDS: Pantoprazole 40 mg ER24 Tablet PO SCH ×2 (09:59→17:33)
--- NOTE | 2017-05-10 10:50 | PCM.PNMED ---
Subjective Date of Service May 10, 2017 Subjective GASTROENTEROLOGY PROGRESS NOTE Attending Physician: Alaina Hines MD Resident Physician: Deneen Griffin DO No acute events overnight. Patient underwent EGD yesterday (05/09) which was significant for This morning he states that he is doing well. He reports back pain which is chronic for him and well controlled with IV pain meds. He reports mild nasal congestion and cough which he attributes to a cold he has been fighting off for the last few weeks. He denies fever, chills, shortness of breath or chest pain. He reports nausea following the endoscopy which was relieved with Zofran. Denies abdominal pain, vomiting, diarrhea or constipation. Per nursing, the patient did have one large black stool last evening. Exam Vital Signs Vital Sign - Last Date Time Temp Pulse Resp B/P Pulse Ox O2 Delivery O2 Flow Rate FiO2 05/10/17 10:02 37.0 87 16 102/62 99 Room Air Intake and Output 05/09/17 05/09/17 05/10/17 Cumulative From/Thru 15:00 23:00 07:00 05/09/17 08:41 - 05/10/17 06:15 Intake Total 609 ml 400 ml 1009 ml Output Total 600 ml 500 ml 1100 ml Balance 9 ml -100 ml -91 ml Intake Oral 0 ml 400 ml 400 ml IV Total 609 ml 609 ml Output Urine Total 600 ml 500 ml 1100 ml # Bowel Movements 1 1 Exam General: Well-appearing male in no acute distress. Appropriately interactive. HEENT: PERRLA, EOMI. Anicteric sclerae. Mucous membranes moist/pink Lungs: Clear to auscultation bilaterally Cardiovascular: Regular rate/rhythm. No murmurs/rubs/gallops Abdomen: Soft, nondistended, nontender to palpation No rebound or guarding. Hypoactive bowel tones. Extremities: No edema Neurological: Grossly neurologically intact. Normal speech IVs and Medications Medications Reviewed: Medications were reviewed in detail Lab and Diagnostics Laboratory Tests Test 05/09/17 12:44 05/09/17 18:10 05/09/17 23:58 05/10/17 02:30 Urine Color Straw (YELLOW) Urine Appearance Hazy (CLEAR,HAZY) Urine pH 6.0 (5.0-8.0) Urine Specific [place] 1.010 (1.003-1.035) Urine Protein Negativemg/dL (NEG,TRACE) Urine Glucose (UA) Negativemg/dL (NEGATIVE) Urine Ketones 40mg/dL (NEGATIVE) Urine Occult Blood Negative (NEGATIVE) Urine Nitrite Negative (NEGATIVE) Urine Bilirubin Negative (NEGATIVE) Urine Urobilinogen Normalmg/dL (NORMAL) Urine Leukocyte Esterase Negative (NEGATIVE) Urine RBC 0-2/hpf (0-2) Urine WBC 0-5/hpf (0-5) Urine Epithelial Cells Occasional/hpf (NONE-MOD) Urine Crystals None seen (NONE SEEN) Urine Bacteria None/hpf (NONE-FEW) Urine Hyaline Casts Occasional/lpf (NONE) Urine Granular Casts None seen (NONE SEEN) Urine Waxy Casts None seen (NONE SEEN) Urine Red Blood Cell Casts None seen (NONE SEEN) Urine White Blood Cell Casts None seen (NONE SEEN) Urine Mucus Present (None Seen) Urine Trichomonas None seen (NONE SEEN) Urine Yeast None (NONE SEEN) Urinalysis Comment None Urine Culture Reflexed Not indicated Hemoglobin 8.6g/dL (13.8-17.2) 8.1g/dL (13.8-17.2) 7.9g/dL (13.8-17.2) Hematocrit 24.6% (41.0-50.0) 22.8% (41.0-50.0) 22.9% (41.0-50.0) White Blood Count 10.4th/mm3 (3.8-10.1) Red Blood Count 2.55mil/mm3 (4.40-5.80) Mean Corpuscular Volume 89.8fL (81-100) Mean Corpuscular Hemoglobin 31.0pg (27.0-35.0) Mean Corpuscular Hemoglobin Concent 34.5% (32.0-37.0) Red Cell Distribution Width 13.3% (12.3-15.4) Platelet Count 232bil/L (150-400) Neutrophils (%) (Auto) 73.1% (40-74) Lymphocytes (%) (Auto) 18.2% (14-46) Monocytes (%) (Auto) 7.2% (4-12) Eosinophils (%) (Auto) 0.8% (0-5) Basophils (%) (Auto) 0.2% (0-3) Sodium Level 137mEq/L (134-144) Potassium Level 4.2mEq/L (3.5-5.2) Chloride Level 103mEq/L (97-108) Carbon Dioxide Level 21mmol/L (18-29) Blood Urea Nitrogen 32mg/dL (8-27) Creatinine 1.08mg/dL (0.76-1.27) Estimat Glomerular Filtration Rate 73mL/min (>59) Glucose Level 105mg/dL (60-99) Calcium Level 7.4mg/dL (8.5-10.1) Total Bilirubin 0.3mg/dL (0.0-1.2) Aspartate Amino Transf (AST/SGOT) 14U/L (0-50) Alanine Aminotransferase (ALT/SGPT) 13U/L (0-44) Alkaline Phosphatase 44U/L (25-160) Total Protein 4.9g/dL (6.4-8.4) Albumin 3.4g/dL (3.4-5.0) Result Diagram: 05/10/17 02305/10/17 0230 X-Rays, CTs and MRIs . X-RAY CHEST ONE VIEW, PORTABLE IMPRESSION: Negative chest. No acute cardiopulmonary process is evident. Dictated by: Peyman Baltazar M.D. on 05/09/2017 CT ABDOMEN AND PELVIS WITH CONTRAST IMPRESSION: 1. No definite acute abnormality is appreciated within the abdomen or pelvis. 2. Nonspecific prominence of the wall of the proximal duodenum may be related to incomplete distention. However, clinical correlation to exclude duodenitis is recommended. 3. Large amount of residual stool within the rectal vault may be related to early fecal impaction or constipation. No bowel obstruction. 4. Possible small hiatal hernia. 5. Small fat containing left in the hernia. 6. Moderate degenerative changes of the spine. Dictated by: Peyman Baltazar M.D. on 05/09/2017 Additional Diagnostics 05/09/17 - EGD FINDINGS: 1. At the junction of the first and second portion of the duodenum at the 8 o' clock position, there was an approximately 8 mm clean-based ulcer. The margins were erythematous and edematous. I was unable to achieve good scope position to biopsy the ulcer. However, was able to visualize the ulcer in its entirety. 2. The remainder of the duodenal exam revealed multiple erosions in the duodenal bulb. 3. Normal-appearing pylorus. In the antrum and body of the stomach, there were multiple clean- based ulcers, as well as scarring from what appeared to be prior ulcers. These ulcers ranged in size from 2-3 mm to approximately 4-5 mm. 4. Retroflexed views in the gastric body revealed a normal-appearing cardia and fundus. 5. The GE junction was regular at 39 cm. 6. No old or fresh blood was seen on the EGD exam. 7. Biopsies were obtained for H. pylori evaluation. IMPRESSION: 1. Multiple gastric ulcers. 2. Duodenal ulcer. RECOMMENDATIONS: 1. Avoid NSAIDs, if able. 2. PPI b.i.d. for 8-12 weeks. 3. Repeat EGD in eight weeks. Alaina Hines MD 05/09/171921 Assessment & Plan 62-year-old gentleman with a history of chronic back pain treated with percocet and daily NSAIDs who presented to the ED following a syncopal episode at home with a complaint of bloody diarrhea for the past two days. GI consulted for further evaluation and management of acute GI bleed. Acute upper GI bleed secondary to gastric as well as duodenal ulcers identified on EGD. -Likely secondary to chronic daily NSAID/aspirin use. -Biopsies for H. pylori evaluation obtained and pending. RECOMMENDATIONS: -Avoid NSAIDs -PPI b.i.d. for 8-12 weeks. -Advance diet as tolerated -Repeat EGD in eight weeks. -Followup in clinic in 2-4weeks Anemia secondary to acute GI bleed. -Patient presented with hypotensive and tachycardic with a hemoglobin of 7.1. -Received 2 unit pRBCs -Monitor Hb/Hct -Management as above. Additional problems managed per primary hospitalist. -Opioid dependence -Chronic back pain -Hypertension Pain Evaluation: Adequate Pain Control GI Prophylaxis: Proton Pump Inhibitor Resuscitation Status: CPR: Attempt Resuscitation Deneen Griffin DO May 10, 2017 10:36
--- NOTE | 2017-05-10 13:56 | PCM.DC.MED ---
Discharge Summary Date of Service May 10, 2017 Dates of Hospitalization Date of Hospital Admission May 09, 2017 at 12:24 Date of Discharge: May 11, 2017 Providers: Admitting Physician: Ramsey Oscar MD Primary Care Physician: Anuj Keating PA-C Attending Physician: Julissa Gongora MD Diagnosis at Time of Discharge Diagnosis at Time of Discharge Upper GI bleed Opioid pain medication dependence Chronic back pain Leukocytosis Hypertension Consultations Gastroenterology, Dr. Hines Procedures XRay, CTs & MRIs . X-RAY CHEST ONE VIEW, PORTABLE IMPRESSION: Negative chest. No acute cardiopulmonary process is evident. Dictated by: Peyman Baltazar M.D. on 05/09/2017 CT ABDOMEN AND PELVIS WITH CONTRAST IMPRESSION: 1. No definite acute abnormality is appreciated within the abdomen or pelvis. 2. Nonspecific prominence of the wall of the proximal duodenum may be related to incomplete distention. However, clinical correlation to exclude duodenitis is recommended. 3. Large amount of residual stool within the rectal vault may be related to early fecal impaction or constipation. No bowel obstruction. 4. Possible small hiatal hernia. 5. Small fat containing left in the hernia. 6. Moderate degenerative changes of the spine. Dictated by: Peyman Baltazar M.D. on 05/09/2017 Invasive Procedures Upper endoscopy Other Diagnostics 05/09/17 - EGD FINDINGS: 1. At the junction of the first and second portion of the duodenum at the 8 o' clock position, there was an approximately 8 mm clean-based ulcer. The margins were erythematous and edematous. I was unable to achieve good scope position to biopsy the ulcer. However, was able to visualize the ulcer in its entirety. 2. The remainder of the duodenal exam revealed multiple erosions in the duodenal bulb. 3. Normal-appearing pylorus. In the antrum and body of the stomach, there were multiple clean- based ulcers, as well as scarring from what appeared to be prior ulcers. These ulcers ranged in size from 2-3 mm to approximately 4-5 mm. 4. Retroflexed views in the gastric body revealed a normal-appearing cardia and fundus. 5. The GE junction was regular at 39 cm. 6. No old or fresh blood was seen on the EGD exam. 7. Biopsies were obtained for H. pylori evaluation. IMPRESSION: 1. Multiple gastric ulcers. 2. Duodenal ulcer. RECOMMENDATIONS: 1. Avoid NSAIDs, if able. 2. PPI b.i.d. for 8-12 weeks. 3. Repeat EGD in eight weeks. Alaina Hines MD 05/09/171921 Brief History Nathan Chavez is a 62-year-old gentleman with a history of hypertension, hyperlipidemia, and chronic back pain with chronic NSAID use who presented to the ED following a syncopal episode at home with the complaint of bloody and dark colored stool for the past 2 days. He states that he had been fighting off a cold and because of that had not been eating or drinking very much. But he otherwise was feeling okay until around 4am yesterday when he passed out after a bowel movement. He states that upon standing he became very lightheaded, diaphoretic, and began hyperventilating. He states that this was the only episode where he lost consciousness but he reports similar symptoms without syncope. Associated symptoms include rapid heart beat, diffuse abdominal pain, nausea with dry heaves, and diarrhea. He reports a history of internal hemorrhoids about 15 years ago that resolved without treatment and have not reoccurred. He states that he has had two colonoscopies in the past which revealed diverticulosis and polyps but were otherwise unremarkable. He denies chest pain, fever, chills, weakness, changes in vision, difficulty swallowing, or changes in speech. He does not an increase in his chronic back pain for which he was recently started on oxycodone-acetaminophen in addition to his daily NSAID use. He states that he drinks diet soda but very little coffee. He denies tobacco or alcohol use. At presentation he was afebrile, tachycardic and hypotensive with a BP of 81/67 and a hemoglobin of 7.1 His blood pressure improved with IV fluids and he was started on a protonix drip. Labs were otherwise notable for a mild leukocytosis with a left shift and an elevated glucose. Hospital Course 62-year-old gentleman with a history of chronic back pain treated with percocet and daily NSAIDs who presented to the ED following a syncopal episode at home with a complaint of bloody diarrhea for the past two days. GI consulted for further evaluation and management of acute GI bleed. Acute upper GI bleed secondary to gastric as well as duodenal ulcers identified on EGD. -Likely secondary to chronic daily NSAID/aspirin use. -Biopsies for H. pylori evaluation obtained and pending. RECOMMENDATIONS: -Avoid NSAIDs -PPI b.i.d. for 8-12 weeks. -Advance diet as tolerated -Repeat EGD in eight weeks. -Followup in clinic in 2-4weeks Anemia secondary to acute GI bleed. -Patient presented with hypotensive and tachycardic with a hemoglobin of 7.1. -Received 2 unit pRBCs -Monitor Hb/Hct -Management as above. Additional problems managed per primary hospitalist. -Opioid dependence -Chronic back pain -Hypertension Exam Vital Signs (Last) Date Time Temp Pulse Resp B/P Pulse Ox O2 Delivery O2 Flow Rate FiO2 05/10/17 12:11 37.4 93 18 99/56 97 Room Air Exam General: Awake alert laying in hospital bed in no apparent distress, well- developed, well-nourished, appropriately interactive HEENT: Normocephalic, atraumatic. External ears without defect. Pupils equal, round, and reactive to light and accommodation. Anicteric sclerae, no conjunctival. Oropharynx free of erythema and cobble stoning with moist mucosa, upper bridge in place. Neck: Supple with full range of motion. No jugular venous distension. Cardiovascular: Regular rate and rhythm with no murmurs, rubs, or gallops appreciated Pulmonary: Clear to auscultation bilaterally with no crackles, wheezes, or rhonchi. Normal respiratory effort with no use of accessory muscles. Abdomen: Bowel tones present. Soft, palpation 4 quadrants. Extremities: No clubbing, cyanosis, edema Skin: Normal temperature, turgor, and texture Neurological: Cranial nerves grossly intact. Psychiatric: Normal mood and affect. Alert and oriented to person, place, and time. Test 05/09/17 08:55 05/09/17 12:44 05/10/17 02:30 05/10/17 10:59 Lactic Acid Level 1.2mmol/L (0.4-2.0) Magnesium Level 1.7mg/dL (1.6-2.6) Lipase 12U/L (13-60) Urine Color Straw (YELLOW) Urine Appearance Hazy (CLEAR,HAZY) Urine pH 6.0 (5.0-8.0) Urine Specific [place] 1.010 (1.003-1.035) Urine Protein Negativemg/dL (NEG,TRACE) Urine Glucose (UA) Negativemg/dL (NEGATIVE) Urine Ketones 40mg/dL (NEGATIVE) Urine Occult Blood Negative (NEGATIVE) Urine Nitrite Negative (NEGATIVE) Urine Bilirubin Negative (NEGATIVE) Urine Urobilinogen Normalmg/dL (NORMAL) Urine Leukocyte Esterase Negative (NEGATIVE) Urine RBC 0-2/hpf (0-2) Urine WBC 0-5/hpf (0-5) Urine Epithelial Cells Occasional/hpf (NONE-MOD) Urine Crystals None seen (NONE SEEN) Urine Bacteria None/hpf (NONE-FEW) Urine Hyaline Casts Occasional/lpf (NONE) Urine Granular Casts None seen (NONE SEEN) Urine Waxy Casts None seen (NONE SEEN) Urine Red Blood Cell Casts None seen (NONE SEEN) Urine White Blood Cell Casts None seen (NONE SEEN) Urine Mucus Present (None Seen) Urine Trichomonas None seen (NONE SEEN) Urine Yeast None (NONE SEEN) Urinalysis Comment None Urine Culture Reflexed Not indicated White Blood Count 10.4th/mm3 (3.8-10.1) Red Blood Count 2.55mil/mm3 (4.40-5.80) Mean Corpuscular Volume 89.8fL (81-100) Mean Corpuscular Hemoglobin 31.0pg (27.0-35.0) Mean Corpuscular Hemoglobin Concent 34.5% (32.0-37.0) Red Cell Distribution Width 13.3% (12.3-15.4) Platelet Count 232bil/L (150-400) Neutrophils (%) (Auto) 73.1% (40-74) Lymphocytes (%) (Auto) 18.2% (14-46) Monocytes (%) (Auto) 7.2% (4-12) Eosinophils (%) (Auto) 0.8% (0-5) Basophils (%) (Auto) 0.2% (0-3) Sodium Level 137mEq/L (134-144) Potassium Level 4.2mEq/L (3.5-5.2) Chloride Level 103mEq/L (97-108) Carbon Dioxide Level 21mmol/L (18-29) Blood Urea Nitrogen 32mg/dL (8-27) Creatinine 1.08mg/dL (0.76-1.27) Estimat Glomerular Filtration Rate 73mL/min (>59) Glucose Level 105mg/dL (60-99) Calcium Level 7.4mg/dL (8.5-10.1) Total Bilirubin 0.3mg/dL (0.0-1.2) Aspartate Amino Transf (AST/SGOT) 14U/L (0-50) Alanine Aminotransferase (ALT/SGPT) 13U/L (0-44) Alkaline Phosphatase 44U/L (25-160) Total Protein 4.9g/dL (6.4-8.4) Albumin 3.4g/dL (3.4-5.0) Hemoglobin 7.5g/dL (13.8-17.2) Hematocrit 21.7% (41.0-50.0) Discharge Medications Discharge Medications Atorvastatin (Lipitor) 20 Mg Tablet 20 MG PO HS (Reported) Lisinopril (Lisinopril) 10 Mg Tablet 10 MG PO DAILY (Reported) Testosterone Cypionate (Testosterone Cypionate) 200 Mg/1 Ml Vial 200 MG IM Every other Monday (Reported) As needed oxyCODONE-Acetaminophen 10-325 mg (oxyCODONE-Acetaminophen 10-325 mg) 1 Each Tablet 1 TABLET PO Q6H PRN PRN For Pain (Reported) JAY GUERRERO DO May 10, 2017 13:56
--- NOTE | 2017-05-10 14:16 | PCM.PNMED ---
Subjective Date of Service May 10, 2017 Subjective Patient received upper endoscopy yesterday which showed multiple gastric bleeding ulcers as well as duodenal ulcer. Has slightly trended back down to 7.5. Otherwise patient feels very well and is cautiously advancing diet. Exam Vital Signs Vital Sign - Last Date Time Temp Pulse Resp B/P Pulse Ox O2 Delivery O2 Flow Rate FiO2 05/10/17 12:11 37.4 93 18 99/56 97 Room Air Intake and Output 05/09/17 05/09/17 05/10/17 Cumulative From/Thru 15:00 23:00 07:00 05/09/17 08:41 - 05/10/17 06:15 Intake Total 609 ml 400 ml 1009 ml Output Total 600 ml 500 ml 1100 ml Balance 9 ml -100 ml -91 ml Intake Oral 0 ml 400 ml 400 ml IV Total 609 ml 609 ml Output Urine Total 600 ml 500 ml 1100 ml # Bowel Movements 1 1 Exam General: Awake alert laying in hospital bed in no apparent distress, well- developed, well-nourished, appropriately interactive HEENT: Normocephalic, atraumatic. External ears without defect. Pupils equal, round, and reactive to light and accommodation. Anicteric sclerae, no conjunctival. Oropharynx free of erythema and cobble stoning with moist mucosa, upper bridge in place. Neck: Supple with full range of motion. No jugular venous distension. Cardiovascular: Regular rate and rhythm with no murmurs, rubs, or gallops appreciated Pulmonary: Clear to auscultation bilaterally with no crackles, wheezes, or rhonchi. Normal respiratory effort with no use of accessory muscles. Abdomen: Bowel tones present. Soft, palpation 4 quadrants. Extremities: No clubbing, cyanosis, edema Skin: Normal temperature, turgor, and texture Neurological: Cranial nerves grossly intact. Psychiatric: Normal mood and affect. Alert and oriented to person, place, and time. IVs and Medications Medications Reviewed: Medications were reviewed in detail Lab and Diagnostics Result Diagram: 05/10/17 1059 05/10/17 0230 X-Rays, CTs and MRIs . X-RAY CHEST ONE VIEW, PORTABLE IMPRESSION: Negative chest. No acute cardiopulmonary process is evident. Dictated by: Peyman Baltazar M.D. on 05/09/2017 CT ABDOMEN AND PELVIS WITH CONTRAST IMPRESSION: 1. No definite acute abnormality is appreciated within the abdomen or pelvis. 2. Nonspecific prominence of the wall of the proximal duodenum may be related to incomplete distention. However, clinical correlation to exclude duodenitis is recommended. 3. Large amount of residual stool within the rectal vault may be related to early fecal impaction or constipation. No bowel obstruction. 4. Possible small hiatal hernia. 5. Small fat containing left in the hernia. 6. Moderate degenerative changes of the spine. Dictated by: Peyman Baltazar M.D. on 05/09/2017 Additional Diagnostics 05/09/17 - EGD FINDINGS: 1. At the junction of the first and second portion of the duodenum at the 8 o' clock position, there was an approximately 8 mm clean-based ulcer. The margins were erythematous and edematous. I was unable to achieve good scope position to biopsy the ulcer. However, was able to visualize the ulcer in its entirety. 2. The remainder of the duodenal exam revealed multiple erosions in the duodenal bulb. 3. Normal-appearing pylorus. In the antrum and body of the stomach, there were multiple clean- based ulcers, as well as scarring from what appeared to be prior ulcers. These ulcers ranged in size from 2-3 mm to approximately 4-5 mm. 4. Retroflexed views in the gastric body revealed a normal-appearing cardia and fundus. 5. The GE junction was regular at 39 cm. 6. No old or fresh blood was seen on the EGD exam. 7. Biopsies were obtained for H. pylori evaluation. IMPRESSION: 1. Multiple gastric ulcers. 2. Duodenal ulcer. RECOMMENDATIONS: 1. Avoid NSAIDs, if able. 2. PPI b.i.d. for 8-12 weeks. 3. Repeat EGD in eight weeks. Alaina Hines MD 05/09/17 287 Assessment & Plan 62-year-old gentleman with a history of chronic back pain treated with percocet and daily NSAIDs who presented to the ED following a syncopal episode at home with a complaint of bloody diarrhea for the past two days. GI consulted for further evaluation and management of acute GI bleed. Acute upper GI bleed secondary to gastric as well as duodenal ulcers identified on EGD. -Likely secondary to chronic daily NSAID/aspirin use. -Biopsies for H. pylori evaluation obtained and pending. -Avoid NSAIDs -Continue PPI -Advance diet as tolerated Anemia secondary to acute GI bleed. Present on admission. Ongoing physical remission. Ongoing -Patient presented with hypotensive and tachycardic with a hemoglobin of 7.1. -Received 2 unit pRBCs -H&H 7.5 today -Continue to monitor with serial Hb/Hct Opioid dependence, present on admission. Ongoing Secondary to chronic back pain and long-standing use of Percocet -IV pain medication discontinued -Converted back to oral home pain medications Chronic back pain, present on admission. Ongoing -Pain medications as above Leukocytosis, present on admission. Improving -Most likely stress reaction -WBC trending down -Continue to monitor for signs of infection Hypertension, present on admission. Stable -Hold home lisinopril secondary to hemodynamic state Disposition: Will remain inpatient status for 1 more night while we monitor H&H and advance diet. GI Prophylaxis: Proton Pump Inhibitor Resuscitation Status: CPR: Attempt Resuscitation Time spent 20 minutes Attending Statement Patient has been seen and examined by myself with medical certification specialist and agree with above history, physical, assessment and plan. JAY GUERRERO DO May 10, 2017 14:06 Julissa Gongora MD May 10, 2017 17:33
--- NOTE | 2017-05-10 14:23 | NUR ---
Social Work: initial assessment/multidisciplinary rounds D: Per EMR review, pt is a 62 year old male admitted for GI bleed. Pt is [employer] insurance with no supplement, LTC or VA benefits. PCP is Anuj Keating PA-C. NOK is Lauren Chavez, , . Advanced directives not completed- info declined. Readmit score is low, 09/25. Pt discussed in am rounds. Capacity for self care discussed; no concerns or needs at this time. Pt is I at baseline and lives at home with his spouse. FLATBED STITCHER met with the patient at bedside. Sw role explained, contact information and d/c planning checklist provided. See initial assessment. pt lives on [address] with his spouse. 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 The patient has never had HH or skilled rehab. Pt lives in a single story home with no steps to enter. Pt and spouse both agree that they do not have any concerns about discharge once the patient is medically stable. A: Pt who is I at baseline. P: Anticipate pt to discharge home via POV once medically stable; FLATBED STITCHER to continue to follow to assess for d/c needs. ROHAN Gan Addendum: 05/10/17 at 1428 by ANNIE STRAUSS Amended: Links added.
--- NOTE | 2017-05-10 17:02 | NUR ---
Diet 09 - Discussed his care with Dr. Gongora and the rest of the multidisciplinary care team during morning rounds. 1237 - Paged Dr. Gongora about his diet since he was still a clear liquid diet and there was a possibility of him being able to go home today. She called back and said to advance him to a full liquid diet. 1703 - Paged Dr. Gongora to see if he could be off telemetry to take a shower. Awaiting to hear back. Care continues. Addendum: 05/10/17 at 1711 by MITESH HERNANDEZ RN 1708 - Dr. Valverde stopped by and said he could take a shower off telemetry. Care continues.
[2017-05-10] MEDS: oxyCODONE-Acetamin 10-325 mg Tablet PO PRN ×2 (17:25→23:27)
[2017-05-11] VITALS (12 sets, daily range): BP systolic 97–146; BP diastolic 53–75; PULSE 78–91; RESP 16–20; O2SAT 97–100
[2017-05-11 02:29] LABS: BASOPHILS % (AUTO) 0.3 % (0-3); EOSINOPHILS % (AUTO) 1.5 % (0-5); MONOCYTES % (AUTO) 7.5 % (4-12); Mean Corpuscular Volume 90.4 fL (81-100); NEUTROPHILS % (AUTO) 72.3 % (40-74); Platelet Count 236 bil/L (150-400)
--- NOTE | 2017-05-11 04:05 | NUR ---
Tele/H&H A&O x3 using call light appropriately, in room assisting w KULDEEP. SBA to [facility]. Hgb - 7.1 Room Air, Chronic Back pain , 10 Mg Oxy Q5 Tele [id number]. Addendum: 05/11/17 at 0618 by SABI JOSEPH RN ordered 2 units PRBC, first of which is infusing, gave second dose of Oxy 10 Mg.
[2017-05-11] MEDS: oxyCODONE-Acetamin 10-325 mg Tablet PO PRN ×4 (05:22→23:44)
[2017-05-11] MEDS: 0.9% Sodium Chloride 250 ML IV SCH (05:22)
[2017-05-11] MEDS: Pantoprazole 40 mg ER24 Tablet PO SCH ×2 (08:08→16:19)
--- NOTE | 2017-05-11 15:10 | PCM.PNMED ---
Subjective Date of Service May 11, 2017 Subjective GASTROENTEROLOGY PROGRESS NOTE Attending Physician: Aliana Hines MD Resident Physician: Deneen Griffin DO No acute events overnight. Patient underwent EGD on 05/09 which was significant for multiple gastric ulcers and a duodenal ulcer. He was monitored overnight to watch his H/H and advance his diet. He is tolerated a general diet without abdominal pain, nausea or vomiting. However, he reports dark colored stool and H /H trending down. At presentation his Hb was 7.1 and he received 2 units of pRBCs with a followup Hb of 8.6. Since that time his H/H trended down slowly and was again 7.1 today for which he received another 2 units of pRBCs. He reports back pain which is chronic and tolerable but otherwise states that he feels well. He is pleased that he is no longer dizzy and lightheaded upon standing and he has been ambulating in his room without difficulty. He denies fever, chills, chest pain, abdominal pain, nausea or vomiting. Exam Vital Signs Vital Sign - Last Date Time Temp Pulse Resp B/P Pulse Ox O2 Delivery O2 Flow Rate FiO2 05/11/17 11:38 37.2 90 16 116/58 05/11/17 08:00 98 Room Air Intake and Output 05/10/17 05/10/17 05/11/17 Cumulative From/Thru 14:59 22:59 06:59 05/09/17 08:41 - 05/11/17 06:29 Intake Total 960 ml 400 ml 2369 ml Output Total 600 ml 500 ml 2200 ml Balance 360 ml -100 ml 169 ml Intake Oral 960 ml 400 ml 1760 ml IV Total 609 ml Output Urine Total 600 ml 500 ml 2200 ml # Bowel Movements 1 Exam General: Well-appearing male in no acute distress. Appropriately interactive. HEENT: PERRLA, EOMI. Anicteric sclerae. Mucous membranes moist/pink Lungs: Clear to auscultation bilaterally Cardiovascular: Regular rate/rhythm. No murmurs/rubs/gallops Abdomen: Soft, nondistended, mildly tender to palpation in epigastric area. No rebound of guarding. Normoactive bowel tones. Extremities: No edema Neurological: AOx3, no focal neurologic deficit. Normal speech. IVs and Medications Medications Reviewed: Medications were reviewed in detail Lab and Diagnostics Laboratory Tests Test 05/10/17 20:45 05/11/17 02:15 05/11/17 12:34 Hemoglobin 7.3g/dL (13.8-17.2) 7.1g/dL (13.8-17.2) 9.3g/dL (13.8-17.2) Hematocrit 21.1% (41.0-50.0) 20.7% (41.0-50.0) 27.2% (41.0-50.0) White Blood Count 10.7th/mm3 (3.8-10.1) Red Blood Count 2.29mil/mm3 (4.40-5.80) Mean Corpuscular Volume 90.4fL (81-100) Mean Corpuscular Hemoglobin 31.0pg (27.0-35.0) Mean Corpuscular Hemoglobin Concent 34.3% (32.0-37.0) Red Cell Distribution Width 13.1% (12.3-15.4) Platelet Count 236bil/L (150-400) Neutrophils (%) (Auto) 72.3% (40-74) Lymphocytes (%) (Auto) 17.4% (14-46) Monocytes (%) (Auto) 7.5% (4-12) Eosinophils (%) (Auto) 1.5% (0-5) Basophils (%) (Auto) 0.3% (0-3) Result Diagram: 05/11/17 1234 05/10/17 0230 X-Rays, CTs and MRIs . X-RAY CHEST ONE VIEW, PORTABLE IMPRESSION: Negative chest. No acute cardiopulmonary process is evident. Dictated by: Peyman Baltazar M.D. on 05/09/2017 CT ABDOMEN AND PELVIS WITH CONTRAST IMPRESSION: 1. No definite acute abnormality is appreciated within the abdomen or pelvis. 2. Nonspecific prominence of the wall of the proximal duodenum may be related to incomplete distention. However, clinical correlation to exclude duodenitis is recommended. 3. Large amount of residual stool within the rectal vault may be related to early fecal impaction or constipation. No bowel obstruction. 4. Possible small hiatal hernia. 5. Small fat containing left in the hernia. 6. Moderate degenerative changes of the spine. Dictated by: Peyman Baltazar M.D. on 05/09/2017 Additional Diagnostics 05/09/17 - EGD FINDINGS: 1. At the junction of the first and second portion of the duodenum at the 8 o' clock position, there was an approximately 8 mm clean-based ulcer. The margins were erythematous and edematous. I was unable to achieve good scope position to biopsy the ulcer. However, was able to visualize the ulcer in its entirety. 2. The remainder of the duodenal exam revealed multiple erosions in the duodenal bulb. 3. Normal-appearing pylorus. In the antrum and body of the stomach, there were multiple clean- based ulcers, as well as scarring from what appeared to be prior ulcers. These ulcers ranged in size from 2-3 mm to approximately 4-5 mm. 4. Retroflexed views in the gastric body revealed a normal-appearing cardia and fundus. 5. The GE junction was regular at 39 cm. 6. No old or fresh blood was seen on the EGD exam. 7. Biopsies were obtained for H. pylori evaluation. IMPRESSION: 1. Multiple gastric ulcers. 2. Duodenal ulcer. RECOMMENDATIONS: 1. Avoid NSAIDs, if able. 2. PPI b.i.d. for 8-12 weeks. 3. Repeat EGD in eight weeks. Alaina Hines MD 05/09/171921 Assessment & Plan 62-year-old gentleman with a history of chronic back pain treated with percocet and daily NSAIDs who presented to the ED following a syncopal episode at home with a complaint of bloody diarrhea for the past two days. GI consulted for further evaluation and management of acute GI bleed. Acute upper GI bleed secondary to gastric as well as duodenal ulcers identified on EGD. -Likely secondary to chronic daily NSAID/aspirin use. -Biopsies for H. pylori evaluation obtained and pending. -Patient with melanotic stool and H/H trended down to 7.1 -s/p 2 more units of pRBCs today (05/11), Hb now 9.3 RECOMMENDATIONS: -Avoid NSAIDs -PPI b.i.d. for 8-12 weeks. -Clear liquid diet while monitoring H/H overnight -If H/H remains stable and patient without overt signs of active bleeding will likely be ready for discharge tomorrow. -Repeat EGD in eight weeks. -Followup in clinic in 2-4weeks Anemia secondary to acute GI bleed. -Patient presented with hypotensive and tachycardic with a hemoglobin of 7.1. -Received 2 unit pRBCs at presentation and an additional 2 units today (05/11) as Hb trended down. -Monitor Hb/Hct -Management as above. Additional problems managed per primary hospitalist. -Opioid dependence -Chronic back pain -Hypertension Pain Evaluation: Adequate Pain Control GI Prophylaxis: Proton Pump Inhibitor Resuscitation Status: CPR: Attempt Resuscitation Attending Statement Pt seen and examined agree with resident physician note above. H/H has tended down, he reeports having had one dark formed stool today at noon. No BM since then. he denies nausea or vomiting. Continues to have lower back pain which is chronic. would recommend clear liquid diet and follow H/H if H/H drops and patient with overt bleeding then will plan for repeat EGD Deneen Griffin DO May 11, 2017 15:10 Alaina Hines MD May 11, 2017 18:28
--- NOTE | 2017-05-11 16:08 | PCM.PNMED ---
Subjective Date of Service May 11, 2017 Subjective EGD yesterday showing multiple gastric ulcers and duodenal ulcers. Patient's hemoglobin dropped to 7.1 yesterday evening requiring an additional 2 units of PRBCs. Vital signs remained stable overnight, no events reported. Diet change back to clear liquids. One bowel movement today dark colored melenic stool. Overall states he feels very well, denies dizziness upon standing, chest pain shortness of breath, headache or abdominal pain. Exam Vital Signs Vital Sign - Last Date Time Temp Pulse Resp B/P Pulse Ox O2 Delivery O2 Flow Rate FiO2 05/11/17 11:38 37.2 90 16 116/58 05/11/17 08:00 98 Room Air Intake and Output 05/10/17 05/10/17 05/11/17 Cumulative From/Thru 15:00 23:00 07:00 05/09/17 08:41 - 05/11/17 06:29 Intake Total 960 ml 400 ml 2369 ml Output Total 600 ml 500 ml 2200 ml Balance 360 ml -100 ml 169 ml Intake Oral 960 ml 400 ml 1760 ml IV Total 609 ml Output Urine Total 600 ml 500 ml 2200 ml # Bowel Movements 1 Exam General: Awake alert sitting up in hospital bed in no apparent distress, well- developed, well-nourished, appropriately interactive HEENT: Normocephalic, atraumatic. External ears without defect. Pupils equal, round, and reactive to light and accommodation. Moist mucosa, upper bridge in place. Neck: Supple with full range of motion. No jugular venous distension. Cardiovascular: Regular rate and rhythm with no murmurs, rubs, or gallops appreciated Pulmonary: Clear to auscultation bilaterally with no crackles, wheezes, or rhonchi. Normal respiratory effort with no use of accessory muscles. Abdomen: Bowel tones present. Soft, palpation 4 quadrants. Extremities: No clubbing, cyanosis, edema Skin: Normal temperature, turgor, and texture Neurological: Cranial nerves grossly intact. Psychiatric: Normal mood and affect. Alert and oriented to person, place, and time. IVs and Medications Medications Reviewed: Medications were reviewed in detail Lab and Diagnostics Result Diagram: 05/11/17 1234 05/10/17 0230 X-Rays, CTs and MRIs . X-RAY CHEST ONE VIEW, PORTABLE IMPRESSION: Negative chest. No acute cardiopulmonary process is evident. Dictated by: Peyman Baltazar M.D. on 05/09/2017 CT ABDOMEN AND PELVIS WITH CONTRAST IMPRESSION: 1. No definite acute abnormality is appreciated within the abdomen or pelvis. 2. Nonspecific prominence of the wall of the proximal duodenum may be related to incomplete distention. However, clinical correlation to exclude duodenitis is recommended. 3. Large amount of residual stool within the rectal vault may be related to early fecal impaction or constipation. No bowel obstruction. 4. Possible small hiatal hernia. 5. Small fat containing left in the hernia. 6. Moderate degenerative changes of the spine. Dictated by: Peyman Baltazar M.D. on 05/09/2017 Additional Diagnostics 05/09/17 - EGD FINDINGS: 1. At the junction of the first and second portion of the duodenum at the 8 o' clock position, there was an approximately 8 mm clean-based ulcer. The margins were erythematous and edematous. I was unable to achieve good scope position to biopsy the ulcer. However, was able to visualize the ulcer in its entirety. 2. The remainder of the duodenal exam revealed multiple erosions in the duodenal bulb. 3. Normal-appearing pylorus. In the antrum and body of the stomach, there were multiple clean- based ulcers, as well as scarring from what appeared to be prior ulcers. These ulcers ranged in size from 2-3 mm to approximately 4-5 mm. 4. Retroflexed views in the gastric body revealed a normal-appearing cardia and fundus. 5. The GE junction was regular at 39 cm. 6. No old or fresh blood was seen on the EGD exam. 7. Biopsies were obtained for H. pylori evaluation. IMPRESSION: 1. Multiple gastric ulcers. 2. Duodenal ulcer. RECOMMENDATIONS: 1. Avoid NSAIDs, if able. 2. PPI b.i.d. for 8-12 weeks. 3. Repeat EGD in eight weeks. Alaina Hines MD 05/09/171921 Assessment & Plan 62-year-old gentleman with a history of chronic back pain treated with percocet and daily NSAIDs who presented to the ED following a syncopal episode at home with a complaint of bloody diarrhea for the past two days. GI consulted for further evaluation and management of acute GI bleed. Acute upper GI bleed secondary to gastric as well as duodenal ulcers identified on EGD. -Likely secondary to chronic daily NSAID/aspirin use. -Hgb trended back down to 7.1 requiring additional 2 units PRBCs overnight -Replete hemoglobin 9.3, continue to monitor with every 6 H&H panel -Biopsies for H. pylori evaluation obtained and pending. -Avoid NSAIDs -Continue PPI -Diet change back to clear liquids Anemia secondary to acute GI bleed. Present on admission. Ongoing physical remission. Ongoing -Patient presented with hemoglobin of 7.1 - 2 units PRBCs given with hemoglobin trending to 8.6 -Hemoglobin and trended back down 7.1 requiring additional 2 units -Hemoglobin currently 9.3 -Continue to monitor with serial Hb/Hct Opioid dependence, present on admission. Ongoing Secondary to chronic back pain and long-standing use of Percocet -IV pain medication discontinued -Converted back to oral home pain medications -Additional Breakthrough pain medication Chronic back pain, present on admission. Ongoing -Pain medications as above Leukocytosis, present on admission. Improving -Most likely stress reaction -WBC trending down -Continue to monitor for signs of infection -Stool studies pending Hypertension, present on admission. Stable -Hold home lisinopril secondary to hemodynamic state Patient Status: Remain inpatient for at least 1 more night for hemoglobin and hematocrit monitoring GI Prophylaxis: Proton Pump Inhibitor Resuscitation Status: CPR: Attempt Resuscitation Time spent 30 minutes Attending Statement Patient has been seen and examined by myself with medical billing and coding specialist and agree with above history, physical, assessment and plan. JAY GUERRERO DO May 11, 2017 16:08 Julissa Gongora MD May 11, 2017 16:24
--- NOTE | 2017-05-11 17:09 | NUR ---
PT TRANSFERRING TO LOWER ACUITY FLOOR. VSS. NO C/O OF DIARRHEA, N/V, OR DIZZINESS. REPORT GIVEN TO BRET PALOMO. PT RECEIVED 2 units of PRBCs. No c/o shortness of breath. Addendum: 05/11/17 at 1716 by JOEL PRICE RN pt had BM on 05/11/17 noted as black, formed, and soft.
--- NOTE | 2017-05-11 18:24 | NUR ---
Transfer [place] [facility] [place] [facility] in the 1700 hour. Has clear liquid diet for dinner and pain pill given. VSS. Will monitor H&H overnoc.
[2017-05-12 00:08] VITALS: BP 142/56; PULSE 69; RESP 18; O2SAT 98
[2017-05-12] MEDS: 0.9% Sodium Chloride 250 ML IV SCH (02:36)
--- NOTE | 2017-05-12 02:58 | NUR ---
NOC shift note Patient has denied dizziness, lightheadedness through the night. Vital signs stable. No bowel movement overnight. Hemoglobin steady at 9.5 for last two lab draws, next one in the AM. Administered PRN analgesics for back pain, effective with pain reduced from 8/10 to 6/10. Alert and oriented, pleasant and cooperative. Intentional rounding in place.
[2017-05-12 04:44] VITALS: BP 140/75; PULSE 84; RESP 18; O2SAT 97
[2017-05-12 06:10] VITALS: PULSE 75
[2017-05-12] MEDS: oxyCODONE-Acetamin 10-325 mg Tablet PO PRN ×2 (06:25→12:49)
[2017-05-12 06:58] LABS: BASOPHILS % (AUTO) 0.5 % (0-3); MONOCYTES % (AUTO) 6.1 % (4-12); Mean Corpuscular Hemoglobin 29.7 pg (27.0-35.0); Mean Corpuscular Volume 87.9 fL (81-100); NEUTROPHILS % (AUTO) 69.1 % (40-74); Platelet Count 245 bil/L (150-400)
[2017-05-12 07:14] LABS: Magnesium 2.1 mg/dL (1.6-2.6)
[2017-05-12] MEDS: Pantoprazole 40 mg ER24 Tablet PO SCH (08:36)
--- NOTE | 2017-05-12 09:03 | PCM.PNMED ---
Subjective Date of Service May 12, 2017 Subjective GASTROENTEROLOGY PROGRESS NOTE Attending Physician: Alaina Hines MD Resident Physician: Deneen Griffin DO No acute events overnight. EGD on 05/09 significant for multiple gastric ulcers and a duodenal ulcer. Hb/Hct trended down and patient reported one dark colored stool. He received an additional 2 units of pRBCs on 05/11. Hemoglobin now appears stable and patient reports back pain which is chronic but is otherwise without complaint. He denies dizziness, abdominal pain, nausea, or vomiting. He had dark colored stool yesterday and has not had another bowel movement but he attributes this to a lack of food. He denies constipation. Exam Vital Signs Vital Sign - Last Date Time Temp Pulse Resp B/P Pulse Ox O2 Delivery O2 Flow Rate FiO2 05/12/17 06:10 75 05/12/17 04:44 36.8 18 140/75 97 Room Air Intake and Output 05/11/17 05/11/17 05/12/17 Cumulative From/Thru 14:59 22:59 06:59 05/09/17 08:41 - 05/12/17 05:40 Intake Total 830 ml 2400 ml 1000 ml 6599 ml Output Total 2400 ml 4600 ml Balance 830 ml 0 ml 1000 ml 1999 ml Intake Oral 2400 ml 1000 ml 5160 ml IV Total 80 ml 689 ml Packed Cells 750 ml 750 ml Output Urine Total 2400 ml 4600 ml # Voids 4 4 # Bowel Movements 2 3 Exam General: Well-appearing male in no acute distress. Appropriately interactive. HEENT: PERRLA. Anicteric sclerae. Mucous membranes moist/pink Lungs: Clear to auscultation bilaterally Cardiovascular: Regular rate/rhythm. No murmurs/rubs/gallops Abdomen: Soft, nondistended, mildly tender to palpation in epigastric area. No rebound of guarding. Normoactive bowel tones. Extremities: No edema Neurological: AOx3, no focal neurologic deficit. Normal speech. IVs and Medications Medications Reviewed: Medications were reviewed in detail Lab and Diagnostics Laboratory Tests Test 05/11/17 12:34 05/11/17 16:45 05/11/17 22:50 05/12/17 06:35 Hemoglobin 9.3g/dL (13.8-17.2) 9.5g/dL (13.8-17.2) 9.5g/dL (13.8-17.2) 10.1g/dL (13.8-17.2) Hematocrit 27.2% (41.0-50.0) 28.3% (41.0-50.0) 27.4% (41.0-50.0) 29.9% (41.0-50.0) White Blood Count 9.4th/mm3 (3.8-10.1) Red Blood Count 3.40mil/mm3 (4.40-5.80) Mean Corpuscular Volume 87.9fL (81-100) Mean Corpuscular Hemoglobin 29.7pg (27.0-35.0) Mean Corpuscular Hemoglobin Concent 33.8% (32.0-37.0) Red Cell Distribution Width 14.6% (12.3-15.4) Platelet Count 245bil/L (150-400) Neutrophils (%) (Auto) 69.1% (40-74) Lymphocytes (%) (Auto) 17.5% (14-46) Monocytes (%) (Auto) 6.1% (4-12) Eosinophils (%) (Auto) 4.0% (0-5) Basophils (%) (Auto) 0.5% (0-3) Sodium Level 140mEq/L (134-144) Potassium Level 4.0mEq/L (3.5-5.2) Chloride Level 106mEq/L (97-108) Carbon Dioxide Level 20mmol/L (18-29) Blood Urea Nitrogen 13mg/dL (8-27) Creatinine 1.02mg/dL (0.76-1.27) Estimat Glomerular Filtration Rate 78mL/min (>59) Glucose Level 108mg/dL (60-99) Calcium Level 8.2mg/dL (8.5-10.1) Magnesium Level 2.1mg/dL (1.6-2.6) Total Bilirubin 0.3mg/dL (0.0-1.2) Aspartate Amino Transf (AST/SGOT) 20U/L (0-50) Alanine Aminotransferase (ALT/SGPT) 16U/L (0-44) Alkaline Phosphatase 54U/L (25-160) Total Protein 5.7g/dL (6.4-8.4) Albumin 3.8g/dL (3.4-5.0) Microbiology 05/11/17 Stool Occult Blood (ALANA) - Positive Result Diagram: 05/12/17 0635 05/12/17 0635 X-Rays, CTs and MRIs . X-RAY CHEST ONE VIEW, PORTABLE IMPRESSION: Negative chest. No acute cardiopulmonary process is evident. Dictated by: Peyman Baltazar M.D. on 05/09/2017 CT ABDOMEN AND PELVIS WITH CONTRAST IMPRESSION: 1. No definite acute abnormality is appreciated within the abdomen or pelvis. 2. Nonspecific prominence of the wall of the proximal duodenum may be related to incomplete distention. However, clinical correlation to exclude duodenitis is recommended. 3. Large amount of residual stool within the rectal vault may be related to early fecal impaction or constipation. No bowel obstruction. 4. Possible small hiatal hernia. 5. Small fat containing left in the hernia. 6. Moderate degenerative changes of the spine. Dictated by: Peyman Baltazar M.D. on 05/09/2017 Additional Diagnostics 05/09/17 - EGD FINDINGS: 1. At the junction of the first and second portion of the duodenum at the 8 o' clock position, there was an approximately 8 mm clean-based ulcer. The margins were erythematous and edematous. I was unable to achieve good scope position to biopsy the ulcer. However, was able to visualize the ulcer in its entirety. 2. The remainder of the duodenal exam revealed multiple erosions in the duodenal bulb. 3. Normal-appearing pylorus. In the antrum and body of the stomach, there were multiple clean- based ulcers, as well as scarring from what appeared to be prior ulcers. These ulcers ranged in size from 2-3 mm to approximately 4-5 mm. 4. Retroflexed views in the gastric body revealed a normal-appearing cardia and fundus. 5. The GE junction was regular at 39 cm. 6. No old or fresh blood was seen on the EGD exam. 7. Biopsies were obtained for H. pylori evaluation. IMPRESSION: 1. Multiple gastric ulcers. 2. Duodenal ulcer. RECOMMENDATIONS: 1. Avoid NSAIDs, if able. 2. PPI b.i.d. for 8-12 weeks. 3. Repeat EGD in eight weeks. Alaina Hines MD 05/09/171921 Assessment & Plan 62-year-old gentleman with a history of chronic back pain treated with percocet and daily NSAIDs who presented to the ED following a syncopal episode at home with a complaint of bloody diarrhea for the past two days. GI consulted for further evaluation and management of acute GI bleed. Acute upper GI bleed secondary to gastric as well as duodenal ulcers identified on EGD. -Likely secondary to chronic daily NSAID/aspirin use. -Biopsies for H. pylori evaluation obtained and pending. -Patient with melanotic stool and H/H trended down to 7.1 on 05/11; s/p 2 more units of pRBCs -H/H appears stable and patient without overt signs of active bleeding, most recently 10.1. RECOMMENDATIONS: -Avoid NSAIDs -PPI b.i.d. for 8-12 weeks. -Followup with PCP in 2 weeks -Followup with GI in 8 weeks for repeat EGD -Ready for discharge from GI standpoint. Anemia secondary to acute GI bleed. -Patient presented with hypotensive and tachycardic with a hemoglobin of 7.1. -Received 2 unit pRBCs at presentation and an additional 2 units today (05/11) as Hb trended down. -Monitor Hb/Hct -Management as above. Additional problems managed per primary hospitalist. -Opioid dependence -Chronic back pain -Hypertension GI Prophylaxis: Proton Pump Inhibitor Resuscitation Status: CPR: Attempt Resuscitation Deneen Griffin DO May 12, 2017 09:01
[2017-05-12 09:34] VITALS: BP 124/74; PULSE 77; RESP 18; O2SAT 97
[2017-05-12 11:39] VITALS: PULSE 93
[2017-05-12] MEDS ORDERED: PANT40TA2 PO (11:42)
--- NOTE | 2017-05-12 11:51 | PCM.DIMED ---
Discharge Instructions Date of Service May 12, 2017 Dates of Hospitalization May 09, 2017 at 12:24 Discharge Diagnosis Discharge Diagnosis # Acute upper gastrointestinal (GI) bleed secondary to gastric as well as duodenal ulcers identified on esophagogastroduodenoscopy (EGD). Present on admission. # Acute anemia secondary to acute GI bleed. Present on admission. - Post total 4 units of packed red blood cell (PRBC) transfusion. # Chronic back pain with resulting opioid dependence, present on admission. # Chronic Hypertension, present on admission. Stable Medication Instructions Additional med instructions Do NOT take any NSAIDs Diet Discharge Diet: Low fat, Low Sodium, Heart Healthy Activity Discharge Activity: No restrictions Call your provider Call your provider for: Fever or Chills, Shortness of breath, Bleeding, Chest pain Patient Instructions Patient Instructions Seek immediate medical attention if any new or worsening signs or symptoms occur. Follow-up plan 1. Followup with primary care provider in 5-7 days 2. Followup with gastroenterology (Dr. Hines) in about 8 weeks. Call to setup appointment [address] [id number] Follow-up Provider: Anuj Keating PA-C Follow-up with PCP in: Other (8 weeks) Provider: Alaina Hines MD Follow-up in: Other (8 weeks) Huey Prabhakar May 12, 2017 11:50
[2017-05-12 12:37] VITALS: BP 91/60; PULSE 86; RESP 18; O2SAT 100
--- NOTE | 2017-05-12 14:00 | NUR ---
Discharge Pt. discharged to home with belongings via POV with . Alert and oriented x 4, vitals stable, agreeable with discharge. Discharge packet with discharge, follow-up, medication instructions, and hard copy of prescription explained to and sent with pt. Pt. declined wheelchair and ambulated from unit with and member of [facility] [place]
--- NOTE | 2017-05-12 19:07 | PCM.DC.MED ---
Discharge Summary Date of Service May 12, 2017 Dates of Hospitalization Date of Hospital Admission May 09, 2017 at 12:24 Date of Discharge: May 11, 2017 Providers: Admitting Physician: Ramsey Oscar MD Primary Care Physician: Anuj Keating PA-C Attending Physician: Huey Lennon Diagnosis at Time of Discharge Diagnosis at Time of Discharge # Acute upper gastrointestinal (GI) bleed secondary to gastric as well as duodenal ulcers identified on esophagogastroduodenoscopy (EGD). Present on admission. # Acute anemia secondary to acute GI bleed. Present on admission. - Post total 4 units of packed red blood cell (PRBC) transfusion. # Chronic back pain with resulting opioid dependence, present on admission. # Chronic Hypertension, present on admission. Stable Consultations 1. Gastroenterology, Dr. Hines Procedures XRay, CTs & MRIs . X-RAY CHEST ONE VIEW, PORTABLE IMPRESSION: Negative chest. No acute cardiopulmonary process is evident. Dictated by: Peyman Baltazar M.D. on 05/09/2017 CT ABDOMEN AND PELVIS WITH CONTRAST IMPRESSION: 1. No definite acute abnormality is appreciated within the abdomen or pelvis. 2. Nonspecific prominence of the wall of the proximal duodenum may be related to incomplete distention. However, clinical correlation to exclude duodenitis is recommended. 3. Large amount of residual stool within the rectal vault may be related to early fecal impaction or constipation. No bowel obstruction. 4. Possible small hiatal hernia. 5. Small fat containing left in the hernia. 6. Moderate degenerative changes of the spine. Dictated by: Peyman Baltazar M.D. on 05/09/2017 Other Diagnostics 05/09/17 - EGD FINDINGS: 1. At the junction of the first and second portion of the duodenum at the 8 o' clock position, there was an approximately 8 mm clean-based ulcer. The margins were erythematous and edematous. I was unable to achieve good scope position to biopsy the ulcer. However, was able to visualize the ulcer in its entirety. 2. The remainder of the duodenal exam revealed multiple erosions in the duodenal bulb. 3. Normal-appearing pylorus. In the antrum and body of the stomach, there were multiple clean- based ulcers, as well as scarring from what appeared to be prior ulcers. These ulcers ranged in size from 2-3 mm to approximately 4-5 mm. 4. Retroflexed views in the gastric body revealed a normal-appearing cardia and fundus. 5. The GE junction was regular at 39 cm. 6. No old or fresh blood was seen on the EGD exam. 7. Biopsies were obtained for H. pylori evaluation. IMPRESSION: 1. Multiple gastric ulcers. 2. Duodenal ulcer. RECOMMENDATIONS: 1. Avoid NSAIDs, if able. 2. PPI b.i.d. for 8-12 weeks. 3. Repeat EGD in eight weeks. Alaina Hines MD 05/09/171921 Brief History As noted in H&P by Dr. Valverde: Nathan Chavez is a 62-year-old gentleman with a history of hypertension, hyperlipidemia, and chronic back pain with chronic NSAID use who presented to the ED following a syncopal episode at home with the complaint of bloody and dark colored stool for the past 2 days. He states that he had been fighting off a cold and because of that had not been eating or drinking very much. But he otherwise was feeling okay until around 4am yesterday when he passed out after a bowel movement. He states that upon standing he became very lightheaded, diaphoretic, and began hyperventilating. He states that this was the only episode where he lost consciousness but he reports similar symptoms without syncope. Associated symptoms include rapid heart beat, diffuse abdominal pain, nausea with dry heaves, and diarrhea. He reports a history of internal hemorrhoids about 15 years ago that resolved without treatment and have not reoccurred. He states that he has had two colonoscopies in the past which revealed diverticulosis and polyps but were otherwise unremarkable. He denies chest pain, fever, chills, weakness, changes in vision, difficulty swallowing, or changes in speech. He does not an increase in his chronic back pain for which he was recently started on oxycodone-acetaminophen in addition to his daily NSAID use. He states that he drinks diet soda but very little coffee. He denies tobacco or alcohol use. At presentation he was afebrile, tachycardic and hypotensive with a BP of 81/67 and a hemoglobin of 7.1 His blood pressure improved with IV fluids and he was started on a protonix drip. Labs were otherwise notable for a mild leukocytosis with a left shift and an elevated glucose. Hospital Course Acute upper GI bleed secondary to gastric as well as duodenal ulcers identified on EGD. -Likely secondary to chronic daily NSAID/aspirin use. -Biopsies for H. pylori evaluation obtained and pending. -Post 2 units PRBC on admission -Patient with melanotic stool and H/H trended down to 7.1 on 05/11; s/p 2 more units of pRBCs Opioid dependence, present on admission. Ongoing Secondary to chronic back pain and long-standing use of Percocet -IV pain medication discontinued -Converted back to oral home pain medications -Additional Breakthrough pain medication Chronic back pain, present on admission. Ongoing -Pain medications as above Leukocytosis, present on admission. Improving -Most likely stress reaction -WBC trending down Hypertension, present on admission. Stable by day of d/c tolerating advanced diet and cleared fro d/c by GI consult Exam Vital Signs (Last) Date Time Temp Pulse Resp B/P Pulse Ox O2 Delivery O2 Flow Rate FiO2 05/12/17 12:37 36.8 86 18 91/60 100 Room Air Exam lungs: CTA bilat Abdomen: Soft, nt, nd, +bs Test 05/09/17 08:55 05/09/17 12:44 05/12/17 06:35 Lactic Acid Level 1.2mmol/L (0.4-2.0) Lipase 12U/L (13-60) Urine Color Straw (YELLOW) Urine Appearance Hazy (CLEAR,HAZY) Urine pH 6.0 (5.0-8.0) Urine Specific [place] 1.010 (1.003-1.035) Urine Protein Negativemg/dL (NEG,TRACE) Urine Glucose (UA) Negativemg/dL (NEGATIVE) Urine Ketones 40mg/dL (NEGATIVE) Urine Occult Blood Negative (NEGATIVE) Urine Nitrite Negative (NEGATIVE) Urine Bilirubin Negative (NEGATIVE) Urine Urobilinogen Normalmg/dL (NORMAL) Urine Leukocyte Esterase Negative (NEGATIVE) Urine RBC 0-2/hpf (0-2) Urine WBC 0-5/hpf (0-5) Urine Epithelial Cells Occasional/hpf (NONE-MOD) Urine Crystals None seen (NONE SEEN) Urine Bacteria None/hpf (NONE-FEW) Urine Hyaline Casts Occasional/lpf (NONE) Urine Granular Casts None seen (NONE SEEN) Urine Waxy Casts None seen (NONE SEEN) Urine Red Blood Cell Casts None seen (NONE SEEN) Urine White Blood Cell Casts None seen (NONE SEEN) Urine Mucus Present (None Seen) Urine Trichomonas None seen (NONE SEEN) Urine Yeast None (NONE SEEN) Urinalysis Comment None Urine Culture Reflexed Not indicated White Blood Count 9.4th/mm3 (3.8-10.1) Red Blood Count 3.40mil/mm3 (4.40-5.80) Hemoglobin 10.1g/dL (13.8-17.2) Hematocrit 29.9% (41.0-50.0) Mean Corpuscular Volume 87.9fL (81-100) Mean Corpuscular Hemoglobin 29.7pg (27.0-35.0) Mean Corpuscular Hemoglobin Concent 33.8% (32.0-37.0) Red Cell Distribution Width 14.6% (12.3-15.4) Platelet Count 245bil/L (150-400) Neutrophils (%) (Auto) 69.1% (40-74) Lymphocytes (%) (Auto) 17.5% (14-46) Monocytes (%) (Auto) 6.1% (4-12) Eosinophils (%) (Auto) 4.0% (0-5) Basophils (%) (Auto) 0.5% (0-3) Sodium Level 140mEq/L (134-144) Potassium Level 4.0mEq/L (3.5-5.2) Chloride Level 106mEq/L (97-108) Carbon Dioxide Level 20mmol/L (18-29) Blood Urea Nitrogen 13mg/dL (8-27) Creatinine 1.02mg/dL (0.76-1.27) Estimat Glomerular Filtration Rate 78mL/min (>59) Glucose Level 108mg/dL (60-99) Calcium Level 8.2mg/dL (8.5-10.1) Magnesium Level 2.1mg/dL (1.6-2.6) Total Bilirubin 0.3mg/dL (0.0-1.2) Aspartate Amino Transf (AST/SGOT) 20U/L (0-50) Alanine Aminotransferase (ALT/SGPT) 16U/L (0-44) Alkaline Phosphatase 54U/L (25-160) Total Protein 5.7g/dL (6.4-8.4) Albumin 3.8g/dL (3.4-5.0) Discharge Medications Discharge Medications Atorvastatin (Lipitor) 20 Mg Tablet 20 MG PO HS (Reported) Lisinopril (Lisinopril) 10 Mg Tablet 10 MG PO DAILY (Reported) Pantoprazole DR (Protonix) 40 Mg Tablet 40 MG PO BID Prescribed by: HUEY LENNON MD Testosterone Cypionate (Testosterone Cypionate) 200 Mg/1 Ml Vial 200 MG IM Every other Monday (Reported) As needed oxyCODONE-Acetaminophen 10-325 mg (oxyCODONE-Acetaminophen 10-325 mg) 1 Each Tablet 1 TABLET PO Q6H PRN PRN For Pain (Reported) Additional med instructions Do NOT take any NSAIDs Followup Plan Disposition: Home Follow-up plan 1. Followup with primary care provider in 5-7 days 2. Followup with gastroenterology (Dr. Hines) in about 8 weeks. Call to setup appointment [address] [phone] Discharge Diet: Low fat, Low Sodium, Heart Healthy Discharge Activity: No restrictions Patient Instructions Seek immediate medical attention if any new or worsening signs or symptoms occur. Follow-up Provider: Anuj Keating PA-C Follow-up with PCP in: Other (8 weeks) Provider: Alaina Hines MD Follow-up in: Other (8 weeks) Time spent 35 min copies to: Alaina Hines MD; Anuj Keating PA-C, [place] May 12, 2017 19:07
== END 2017-05-12 14:00 | disposition home or self-care (01) | DRG 378 ==
LOC: SED 08:25 → EDBD 08:25 → PCC 12:24 → MPC 05-11 17:10
PROVIDERS: ADMIT Hospitalist; ATTEND Internal Medicine
PROC: 30233N1 Transfusion of Nonautologous Red Blood Cells into Peripheral Vein, Percutaneous Approach (ICD-10-PCS; 2017-05-09)
PROC: 0DB68ZX Excision of Stomach, Via Natural or Artificial Opening Endoscopic, Diagnostic (ICD-10-PCS; principal; 2017-05-09 16:30)
PROC: 30233N1 Transfusion of Nonautologous Red Blood Cells into Peripheral Vein, Percutaneous Approach (ICD-10-PCS; 2017-05-11)
DX: K25.0 Acute gastric ulcer with hemorrhage (principal); F11.20 Opioid dependence, uncomplicated; D62 Acute posthemorrhagic anemia; Z79.82 Long term (current) use of aspirin; Z91.81 History of falling; M54.9 Dorsalgia, unspecified; Z86.010 Personal history of colon polyps; K26.0 Acute duodenal ulcer with hemorrhage; T39.395A Adverse effect of other nonsteroidal anti-inflammatory drugs [NSAID], initial encounter; T39.015A Adverse effect of aspirin, initial encounter